=== PATIENT | female | born 1965 | race African-American/Black ===

== ENCOUNTER 2018-05-26 12:11 | Observation (INO) | payer OTHER ==
[2018-05-26] MEDS ORDERED: NA CHLORIDE 0.9% 1,000 ML ONE (12:40)
--- NOTE | 2018-05-26 12:58 | RAD REPORT ---
EXAM DESCRIPTION: CT - Head Brain Wo Cont - 05/26/2018 12:44 pm CLINICAL HISTORY: Dizziness;Headache COMPARISON: No comparisons TECHNIQUE: All CT scans are performed using dose optimization technique as appropriate and may inclu de automated exposure control or mA/KV adjustment according to patient size. FINDINGS: No intracranial hemorrhage, hydrocephalus or extra-axial fluid collection.No areas of brai n edema or evidence of midline shift. Moderate mucoperiosteal thickening affects the maxillary antra and ethmoid air cells. The calvarium i s intact. IMPRESSION: No acute intracranial abnormality. Moderate paranasal sinus thickening.
--- NOTE | 2018-05-26 12:58 | RAD REPORT ---
EXAM DESCRIPTION: RAD - Chest Single View - 05/26/2018 12:49 pm CLINICAL HISTORY: COUGH Chest pain. COMPARISON: No comparisons FINDINGS: Portable technique limits examination quality. The lungs are grossly clear. The heart is normal in size. No displaced fractures. IMPRESSION: No acute intrathoracic process suspected.
[2018-05-26] MEDS ORDERED: IPRATROPIUM BROM 0.5MG/2.5ML ONE (13:32)
[2018-05-26] MEDS ORDERED: LEVALBUTEROL 1.25 MG/3 ML NEB ONE (13:33)
[2018-05-26] MEDS ORDERED: METHYLPREDNISOLONE 125 MG INJ ONE (13:33)
[2018-05-26 13:46] LABS: Absolute Lymphocytes (CBC) 6.8 K/uL (0.7-4.9); Absolute Neutrophil 8.8 K/uL (1.8-8.0); Basophils % 0.6 % (0-1.3); Eosinophils % 0.8 % (0-4.4); Hematocrit 35.2 % (36.0-45.0); Lymphocytes % 40.4 % (15.3-44.8); MCH 29.1 pg (27.0-35.0); MCV 87.6 fL (80-100); MPV 8.6 fL (7.6-11.3); Monocytes % 6.2 % (3.3-12.3); RBC Red Blood Cell Count 4.01 M/uL (3.86-4.86)
[2018-05-26 13:48] LABS: Protime INR 1.08
[2018-05-26] MEDS ORDERED: CEFTRIAXONE/SWI 1gm 1 GM/10 ML SYR ONE (14:04)
[2018-05-26] MEDS ORDERED: AZITHROMYCIN 500 MG/250 ML BAG ONE (14:05)
[2018-05-26 14:09] LABS: ALT/SGPT 43 U/L (12-78); AST/SGOT 25 U/L (15-37); Alkaline Phosphatase 104 U/L (45-117); BUN Blood Urea Nitrogen 15 mg/dL (7-18); Bicarbonate 27 mmol/L (21-32); Bilirubin Direct 0.1 mg/dL (0-0.2); Bilirubin Total 0.3 mg/dL (0.2-1.0); Glucose Level 69 mg/dL (74-106); Lipase 197 U/L (73-393); Magnesium 2.5 mg/dL (1.8-2.4); NT PRO-BNP 85 pg/mL (<125); Potassium 3.2 mmol/L (3.5-5.1); Sodium Level 141 mmol/L (136-145); Troponin (Emerg Dept Use Only) < 0.02 ng/mL (0.0-0.045)
--- NOTE | 2018-05-26 14:12 | RAD REPORT ---
EXAM DESCRIPTION: MRI - Brain Wo Cont - 05/26/2018 1:54 pm CLINICAL HISTORY: Dizziness, numbness, left-sided headache and left arm numbness, visual changes COMPARISON: CT head same date TECHNIQUE: Sagittal T1-weighted images were obtained along with axial PD, heavily T2-weighted and T2 -FLAIR images. Axial DWI and ADC mapping sequences were also obtained along with coronal heavily T2-w eighted images. FINDINGS: No intracranial hemorrhage, mass or acute infarction. There is no edema or shift of midlin e structures. No extra-axial fluid collections. Wheat-matter/white matter junction is preserved. Signa l voids are seen as a normal finding in the major intracranial vessels. The ventricles are normal. No globe or orbital content abnormality. No sella or supra sella mass. Mastoid air cells are clear. There is significant mucosal thickening throughout the maxillary and eth moid sinuses. Small air-fluid levels in each maxillary sinus are identifiable. There is mucosal thick ening in the right-side frontal sinus as well. IMPRESSION: No intracranial abnormalities identifiable. Significant paranasal sinus disease including small air-fluid levels in each maxillary sinus.
[2018-05-26 14:42] LABS: Barbiturates NEGATIVE (NEGATIVE); Benzodiazepines NEGATIVE (NEGATIVE); Cocaine NEGATIVE (NEGATIVE); METHAMPHETAM NEGATIVE (NEGATIVE); Methadone NEGATIVE (NEGATIVE); Opiates NEGATIVE (NEGATIVE); Phencyclidine NEGATIVE (NEGATIVE); THC Cannibis NEGATIVE (NEGATIVE)
[2018-05-26] MEDS ORDERED: POTASSIUM 25 MEQ EFFERV TAB ONE (14:48)
--- NOTE | 2018-05-26 15:00 | EDPHYS ---
Physician Documentation [facility] Name: Stacey Oliveros Age: 53 yrs Sex: Female : 1965 Arrival Date: 05/26/2018 Time: 12:11 Bed 8 Private MD: ED Physician Joshua Mariano HPI: 05/26 13:13 This 53 yrs old Black Female presents to ER via EMS with complaints of Cough, Vision irwin Problem. 13:13 The patient or guardian reports airway noise, cough, difficulty breathing. Onset: The irwin symptoms/episode began/occurred 3 day(s) ago. Severity of symptoms: At their worst the symptoms were mild, in the emergency department the symptoms are unchanged. 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 - Social history:: Smoking status: Patient/guardian denies using tobacco, Patient/guardian denies using alcohol. - Ebola Screening: : Patient negative for fever greater than or equal to 101.5 degrees Fahrenheit, and additional compatible Ebola Virus Disease symptoms Patient denies exposure to infectious person Patient denies travel to an Ebola-affected area in the 21 days before illness onset. ROS: 13:14 Constitutional: Negative for fever, chills, and weight loss, Eyes: Negative for injury, irwin pain, redness, and discharge, ENT: Negative for injury, pain, and discharge, Neck: Negative for injury, pain, and swelling, Cardiovascular: Negative for chest pain, palpitations, and edema, Abdomen/GI: Negative for abdominal pain, nausea, vomiting, diarrhea, and constipation, Back: Negative for injury and pain, : Negative for injury, bleeding, discharge, and swelling, MS/Extremity: Negative for injury and deformity, Skin: Negative for injury, rash, and discoloration, Psych: Negative for depression, anxiety, suicide ideation, homicidal ideation, and hallucinations, Allergy/Immunology: Negative for hives, rash, and allergies, Endocrine: Negative for neck swelling, polydipsia, polyuria, polyphagia, and marked weight changes, Hematologic/Lymphatic: Negative for swollen nodes, abnormal bleeding, and unusual bruising. 13:14 Respiratory: Positive for cough, shortness of breath, wheezing, expiratory. 13:14 Neuro: Positive for numbness, of the nose, left cheek and left eye. Exam: 13:14 Constitutional: This is a well developed, well nourished patient who is awake, alert, irwin and in no acute distress. Head/Face: Normocephalic, atraumatic. Eyes: Pupils equal round and reactive to light, extra-ocular motions intact. Lids and lashes normal. Conjunctiva and sclera are non-icteric and not injected. Cornea within normal limits. Periorbital areas with no swelling, redness, or edema. ENT: Nares patent. No nasal discharge, no septal abnormalities noted. Tympanic membranes are normal and external auditory canals are clear. Oropharynx with no redness, swelling, or masses, exudates, or evidence of obstruction, uvula midline. Mucous membranes moist. Neck: Trachea midline, no thyromegaly or masses palpated, and no cervical lymphadenopathy. Supple, full range of motion without nuchal rigidity, or vertebral point tenderness. No Meningismus. Chest/axilla: Normal chest wall appearance and motion. Nontender with no deformity. No lesions are appreciated. Cardiovascular: Regular rate and rhythm with a normal S1 and S2. No gallops, murmurs, or rubs. Normal PMI, no JVD. No pulse deficits. Respiratory: Lungs have equal breath sounds bilaterally, clear to auscultation and percussion. No rales, rhonchi or wheezes noted. No increased work of breathing, no retractions or nasal flaring. Abdomen/GI: Soft, non-tender, with normal bowel sounds. No distension or tympany. No guarding or rebound. No evidence of tenderness throughout. Back: No spinal tenderness. No costovertebral tenderness. Full range of motion. Skin: Warm, dry with normal turgor. Normal color with no rashes, no lesions, and no evidence of cellulitis. MS/ Extremity: Pulses equal, no cyanosis. Neurovascular intact. Full, normal range of motion. Neuro: Awake and alert, GCS 15, oriented to person, place, time, and situation. Cranial nerves II-XII grossly intact. Motor strength 5/5 in all extremities. Sensory grossly intact. Cerebellar exam normal. Normal gait. Psych: Awake, alert, with orientation to person, place and time. Behavior, mood, and affect are within normal limits. 13:14 Neuro: Orientation: is normal, appropriate for stated age, no acute changes, Mentation: is normal, appropriate for stated age, no acute changes, Memory: is normal, appropriate for stated age, no acute changes, Cranial nerves: grossly normal, is grossly normal based on the patient's age, no acute changes, Cerebellar function: is grossly normal, is grossly normal based on the patient's age, no acute changes, normal finger to nose testing, heel to sena testing is normal, able to perform alternating rapid hand movements, Motor: is normal, is grossly normal based on the patient's age, no acute changes, moves all fours, strength is 5/5 in all extremities, Gait: not tested. Deep tendon reflexes are 2+ (normal) in the bilateral brachioradialis, bicep, tricep and patellar and Achilles tendons, seizure activity, is not displayed by the patient. Vital Signs: 12:16 BP 154 / 91; Pulse 69; Resp 18; Temp 97.2(TE); Pulse Ox 98% on R/A; Weight 87.54 kg; Height 5 ft. 7 in. (170.18 cm); Pain 8/10; 13:55 BP 148 / 89; Pulse 70; Resp 18; Pulse Ox 99% on R/A; hj 14:38 BP 136 / 75; Pulse 75; Resp 18; Pulse Ox 100% on R/A; 15:07 BP 136 / 96; Pulse 76; Resp 18; Pulse Ox 98% on R/A; 16:15 BP 132 / 94; Pulse 78; Resp 18; Pulse Ox 99% on R/A; 12:16 Body Mass Index 30.23 (87.54 kg, 170.18 cm) MDM: 12:14 Patient medically screened. [facility] 13:16 Data reviewed: vital signs, nurses notes, lab test result(s), EKG, radiologic studies, [facility] CT scan, MRI, plain films. 05/26 12:27 Order name: Basic Metabolic Panel; Complete Time: 14:18 [facility] 05/26 12:27 Order name: CBC with Diff; Complete Time: 14:18 [facility] 05/26 12:27 Order name: LFT's; Complete Time: 14:18 [facility] 05/26 12:27 Order name: Magnesium; Complete Time: 14:18 [facility] 05/26 12:27 Order name: NT PRO-BNP; Complete Time: 14:18 [facility] 05/26 12:27 Order name: PT-INR; Complete Time: 14:28 [facility] 05/26 12:27 Order name: Troponin (emerg Dept Use Only); Complete Time: 14:18 [facility] 05/26 12:27 Order name: Lipase; Complete Time: 14:18 [facility] 05/26 12:27 Order name: Blood Culture Adult (2) [facility] 05/26 12:27 Order name: Urine Culture [facility] 05/26 12:27 Order name: Procalcitonin; Complete Time: 14:28 [facility] 05/26 13:11 Order name: UDS; Complete Time: 14:56 [facility] 05/26 14:53 Order name: Urine Dipstick--Ancillary (enter results) 05/26 14:53 Order name: Urine --Ancillary (enter results) 05/26 12:27 Order name: XRAY Chest (1 view); Complete Time: 13:11 [facility] 05/26 12:27 Order name: EKG; Complete Time: 12:28 [facility] 05/26 12:27 Order name: Cardiac monitoring; Complete Time: 12:30 [facility] 05/26 12:27 Order name: CT Head Brain wo Cont; Complete Time: 13:11 [facility] 05/26 13:52 Order name: Brain Wo Cont; Complete Time: 14:18 EDID 05/26 12:27 Order name: EKG - Nurse/Tech; Complete Time: 13:47 [facility] 05/26 12:27 Order name: IV Saline Lock; Complete Time: 13:36 [facility] 05/26 12:27 Order name: Labs collected and sent; Complete Time: 13:36 [facility] 05/26 12:27 Order name: O2 Per Protocol; Complete Time: 12:30 [facility] 05/26 12:27 Order name: O2 Sat Monitoring; Complete Time: 12:30 [facility] 05/26 12:27 Order name: Urine Dipstick-Ancillary (obtain specimen); Complete Time: 14:14 [facility] 05/26 14:19 Order name: PO challenge: juice x1; Complete Time: 14:23 [facility] Administered Medications: 13:23 Drug: NS 0.9% 1000 ml Route: IV; Rate: 1 bolus; Site: left antecubital; hj 13:23 Drug: Xopenex 2.5 mg Route: Inhalation; hj 13:23 Drug: AtroVENT Aerosol 0.5 mg Route: Inhalation; hj 13:39 Drug: SOLU-Medrol 125 mg Route: IVP; Site: left antecubital; bp 13:56 Follow up: Response: No adverse reaction hj 14:21 Drug: Rocephin - (cefTRIAXone) 1 grams Route: IVPB; Infused Over: 30 mins; Site: left bp antecubital; 16:17 Follow up: IV Status: Completed infusion hj 14:22 Drug: Rocephin - (cefTRIAXone) 1 grams Route: IVPB; Infused Over: 30 mins; Site: left bp antecubital; 14:22 Drug: Zithromax 500 mg Route: IVPB; Infused Over: 1 hrs; Site: left antecubital; bp 16:17 Follow up: IV Status: Completed infusion hj 14:29 Drug: Potassium Effervescent Tablet 25 mEq Route: PO; hj 14:44 Follow up: Response: No adverse reaction hj 16:08 Not Given (pt enroute upstairs): morphine 4 mg IVP once hj 16:08 Not Given (pt enroute upstairs): Zofran 4 mg IVP once; over 2 minutes hj Disposition: 18 15:00 Hospitalization ordered by Marvin Torres for Observation. Preliminary diagnosis are Cough, Fever, unspecified, Pneumonia due to other specified bacteria, Headache, Acute sinusitis, Hypokalemia. - Bed requested for Telemetry/MedSurg (observation). - Status is Observation. hj - Condition is Fair. - Problem is new. - Symptoms have improved. UTI on Admission? No Signatures: Dispatcher [employer] EDID Liudmila Gerardo Corey, MD MD cha Joaquin, Henry RN RN Jonah Gauthier, RN RN bp Corrections: (The following items were deleted from the chart) 13:52 13:12 MR STROKE PROTOCOL+MRI.RAD.BRZ ordered. [facility] EDID 15:00 15:00 Hospitalization Ordered by Marvin Torres DO for Inpatient Admission. Preliminary irwin diagnosis is Cough; Fever, unspecified; Pneumonia due to other specified bacteria; Headache; Acute sinusitis. Bed requested for Telemetry/MedSurg (Inpatient). Status is Inpatient Admission. Condition is Fair. Problem is new. Symptoms have improved. UTI on Admission? No. irwin 15:00 15:00 05/26/2018 15:00 Hospitalization Ordered by Marvin Torres DO for Observation. irwin Preliminary diagnosis is Cough; Fever, unspecified; Pneumonia due to other specified bacteria; Headache; Acute sinusitis. Bed requested for Telemetry/MedSurg (observation). Status is Observation. Condition is Fair. Problem is new. Symptoms have improved. UTI on Admission? No. [facility] 15:40 15:00 05/26/2018 15:00 Hospitalization Ordered by Marvin Torres DO for Observation. bd Preliminary diagnosis is Cough; Fever, unspecified; Pneumonia due to other specified bacteria; Headache; Acute sinusitis; Hypokalemia. Bed requested for Telemetry/MedSurg (observation). Status is Observation. Condition is Fair. Problem is new. Symptoms have improved. UTI on Admission? No. [facility] 16:16 15:40 05/26/2018 15:00 Hospitalization Ordered by Marvin Torres DO for Observation. hj Preliminary diagnosis is Cough; Fever, unspecified; Pneumonia due to other specified bacteria; Headache; Acute sinusitis; Hypokalemia. Bed requested for Telemetry/MedSurg (observation). Status is Observation. Condition is Fair. Problem is new. Symptoms have improved. UTI on Admission? No. bd
--- NOTE | 2018-05-26 15:00 | ER ---
Nurse's Notes [facility] Name: Stacey Oliveros Age: 53 yrs Sex: Female : 1965 Arrival Date: 05/26/2018 Time: 12:11 Bed 8 Private MD: Diagnosis: Cough;Fever, unspecified;Pneumonia due to other specified bacteria;Headache;Acute sinusitis;Hypokalemia Presentation: 05/26 12:12 Presenting complaint: EMS states: coming from [facility], pt states, almost done hj with antibiotics and steroid Rx when pt complained of "tunnel vision" , denies blurry vision; reports one sided L side of head pain, L arm numbness; BP- 160/90;. Transition of care: patient was not received from another setting of care. Onset of symptoms was May 26, 2018. Risk Assessment: Do you want to hurt yourself or someone else? Patient reports no desire to harm self or others. Initial Sepsis Screen: Does the patient meet any 2 criteria? No. Patient's initial sepsis screen is negative. Does the patient have a suspected source of infection? No. Patient's initial sepsis screen is negative. Care prior to arrival: None. 12:12 Method Of Arrival: EMS: [facility] 12:12 Acuity: RENEE 3 hj Triage Assessment: 12:15 General: Appears in no apparent distress. uncomfortable, Behavior is calm, cooperative, hj appropriate for age. Pain: Complains of pain in L side of face. 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 - Social history:: Smoking status: Patient/guardian denies using tobacco, Patient/guardian denies using alcohol. - Ebola Screening: : Patient negative for fever greater than or equal to 101.5 degrees Fahrenheit, and additional compatible Ebola Virus Disease symptoms Patient denies exposure to infectious person Patient denies travel to an Ebola-affected area in the 21 days before illness onset. Screenin:16 Abuse screen: Denies threats or abuse. Denies injuries from another. Nutritional hj screening: No deficits noted. Tuberculosis screening: No symptoms or risk factors identified. Fall Risk None identified. Assessment: 12:58 General: Appears in no apparent distress. uncomfortable, Behavior is calm, cooperative, hj appropriate for age. Pain: Complains of pain in face and left eye and left cheek. Neuro: Level of Consciousness is awake, alert, obeys commands, Oriented to person, place, time, situation, Appropriate for age. Cardiovascular: Capillary refill < 3 seconds Patient's skin is warm and dry. Respiratory: Airway is patent Respiratory effort is even, unlabored, Respiratory pattern is regular, symmetrical. GI: No signs and/or symptoms were reported involving the gastrointestinal system. : No signs and/or symptoms were reported regarding the genitourinary system. EENT: No signs and/or symptoms were reported regarding the EENT system. Derm: No signs and/or symptoms reported regarding the dermatologic system. Musculoskeletal: No signs and/or symptoms reported regarding the musculoskeletal system. 13:45 Reassessment: wheeled to CT:. hj 14:15 Reassessment: PT RETURNED FROM CT. ALL CURRENT STUDIES COMPLETED, RESULTS PENDING. bp 14:38 Reassessment: Patient and/or family updated on plan of care and expected duration. Pain hj level reassessed. Patient is alert, oriented x 3, equal unlabored respirations, skin warm/dry/pink. 15:06 Reassessment: Patient and/or family updated on plan of care and expected duration. Pain hj level reassessed. Patient is alert, oriented x 3, equal unlabored respirations, skin warm/dry/pink. awaiting room placement;. 16:15 Reassessment: to room 228;. hj Vital Signs: 12:16 BP 154 / 91; Pulse 69; Resp 18; Temp 97.2(TE); Pulse Ox 98% on R/A; Weight 87.54 kg; hj Height 5 ft. 7 in. (170.18 cm); Pain 8/10; 13:55 BP 148 / 89; Pulse 70; Resp 18; Pulse Ox 99% on R/A; hj 14:38 BP 136 / 75; Pulse 75; Resp 18; Pulse Ox 100% on R/A; hj 15:07 BP 136 / 96; Pulse 76; Resp 18; Pulse Ox 98% on R/A; hj 16:15 BP 132 / 94; Pulse 78; Resp 18; Pulse Ox 99% on R/A; hj 12:16 Body Mass Index 30.23 (87.54 kg, 170.18 cm) ED Course: 12:11 Patient arrived in ED. hj 12:12 Girish Jackson, RN is Primary Nurse. hj 12:13 Joshua Mariano MD is Attending Physician. irwin 12:14 Triage completed. hj 12:16 Arm band placed on right wrist. hj 12:16 Patient has correct armband on for positive identification. Bed in low position. Call light in reach. Side rails up X2. 12:43 CT Head Brain wo Cont In Process Unspecified. EDMS 12:43 CT completed. Patient tolerated procedure well. Patient moved to CT via stretcher. [email or web address] Patient moved to radiology. 12:48 X-ray completed. Patient tolerated procedure well. Patient moved back from radiology. sw 12:49 XRAY Chest (1 view) In Process Unspecified. EDMS 12:49 EKG done, by power equipment technology instructor. reviewed by Joshua Mariano MD. sm3 13:38 Inserted saline lock: 22 gauge in left antecubital area, using aseptic technique. Blood bp collected. 13:52 Patient moved to MRI via wheelchair. ka 13:54 Brain Wo Cont In Process Unspecified. EDMS 14:15 Patient moved back from MRI. 14:57 Marvin Torres DO is Hospitalizing Provider. irwin 16:14 No provider procedures requiring assistance completed. Patient admitted, IV remains in hj place. intact. Administered Medications: 13:23 Drug: NS 0.9% 1000 ml Route: IV; Rate: 1 bolus; Site: left antecubital; hj 13:23 Drug: Xopenex 2.5 mg Route: Inhalation; hj 13:23 Drug: AtroVENT Aerosol 0.5 mg Route: Inhalation; hj 13:39 Drug: SOLU-Medrol 125 mg Route: IVP; Site: left antecubital; bp 13:56 Follow up: Response: No adverse reaction hj 14:21 Drug: Rocephin - (cefTRIAXone) 1 grams Route: IVPB; Infused Over: 30 mins; Site: left bp antecubital; 16:17 Follow up: IV Status: Completed infusion hj 14:22 Drug: Rocephin - (cefTRIAXone) 1 grams Route: IVPB; Infused Over: 30 mins; Site: left bp antecubital; 14:22 Drug: Zithromax 500 mg Route: IVPB; Infused Over: 1 hrs; Site: left antecubital; bp 16:17 Follow up: IV Status: Completed infusion 14:29 Drug: Potassium Effervescent Tablet 25 mEq Route: PO; 14:44 Follow up: Response: No adverse reaction 16:08 Not Given (pt enroute upstairs): morphine 4 mg IVP once hj 16:08 Not Given (pt enroute upstairs): Zofran 4 mg IVP once; over 2 minutes Outcome: 15:00 Decision to Hospitalize by Provider. irwin 16:14 Admitted to Med/surg accompanied by nurse, room 228, with chart, Report called to stephon Mooney RN 16:14 Condition: stable 16:14 Instructed on the need for admit, Demonstrated understanding of instructions. 16:16 Patient left the ED. stephon Signatures: Dispatcher [employer] EDMS Joshua Mariano MD MD cha Compean, Lorena lc Warren, Shannon sw Joaquin, Henry, RN RN Sandi Nolen Brian, JOHN RN Debbie Morales3 Triston, Sara [id number] Corrections: (The following items were deleted from the chart) 12:18 12:16 BP 154 / 91; Pulse 69bpm; Resp 18bpm; Pulse Ox 98% RA; Temp 98.1F Temporal; 87.54 hj kg; Height 5 ft. 7 in.; BMI: 30.2; Pain 6/10; hj
[2018-05-26] MEDS ORDERED: BENZONATATE 100 MG CAP PO PRN (15:12)
[2018-05-26] MEDS ORDERED: ACETAMINOPHEN 500 MG TAB PO PRN (15:12)
[2018-05-26] MEDS ORDERED: ALBUTEROL 2.5 MG/3 ML NEB SOL NEB PRN (15:12)
[2018-05-26] MEDS ORDERED: ONDANSETRON 4 MG/2 ML VIAL IV PRN (15:12)
[2018-05-26] MEDS ORDERED: IPRATROPIUM BROM 0.5MG/2.5ML NEB PRN (15:12)
--- NOTE | 2018-05-26 15:23 | P.HP ---
Certification for Inpatient Patient admitted to: Observation With expected LOS: <2 Midnights Patient will require the following post-hospital care: None Practitioner: I am a practitioner with admitting privileges, knowledge of patient current condition, hospital course, and medical plan of care. Services: Services provided to patient in accordance with Admission requirements found in Title 42 Section 412.3 of the Code of Federal Regulations Patient History Date of Service: 05/26/18 Primary Care Provider: Chepe Whatley Reason for admission: Cough, congestion, shortness of breath History of Present Illness: 53-year-old female presented to the emergency room with cough, congestion and shortness of breath. Patient was seen earlier in the week for cough, congestion and shortness of breath. She was diagnosed with bronchitis. She was sent home with Zithromax and a steroid pack. Her condition did not improve. She persisted to have increasing cough with congestion. Some sinus tenderness noted. She denied any fever, chest pain. She reported some shortness of breath and chills. She also reported some numbness to the face with tenderness. Patient came to the ER for evaluation. In the ER blood pressure stable. CT of the head showed no acute changes. MRI brain showed no acute changes except for air-fluid levels in the maxillaries sinuses. Chest x-ray unremarkable. White count 16.8. Hemoglobin 11.7. Sodium 141, potassium 3.2. Creatinine 1.0, GFR 70. Troponin less than 0.02. Pro calcitonin unremarkable. Urine drug screen negative. Patient was admitted for observation. When I saw the patient ER, she appeared stable. Pain to the sinus areas improved. She had increasing cough and congestion. She does not have a history of COPD. She reports a history of tobacco abuse and alcohol use. Allergies No Known Drug Allergies Allergy (Unverified 11/17/14 03:19) Unknown Home medications list reviewed: Yes - Past Medical/Surgical History Diabetic: No -: Chronic sinusitis -: Tobacco abuse Past Surgical History: Patient denies surgical history Psychosocial/ Personal History: The patient is engaged. She has 2 children. 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 - Family History Father -: Heart disease Mother -: Diabetes - Social History Smoking Status: Light Tobacco smoker (1-9 cigarettes/day) Counseled patient to stop smoking for: less than 10 minutes Alcohol use: Yes CD- Drugs: No Caffeine use: Yes Place of Residence: Home Review of Systems General: Weakness, Unremarkable Eyes: Unremarkable ENT: Nose Congestion, As per HPI Respiratory: Cough, Shortness of Breath, As per HPI Cardiovascular: Unremarkable Gastrointestinal: Unremarkable Genitourinary: Unremarkable Musculoskeletal: Unremarkable Integumentary: Unremarkable Neurological: Unremarkable Lymphatics: Unremarkable Physical Examination - Physical Exam General: Alert, In no apparent distress, Oriented x3, Cooperative HEENT: Atraumatic, Other (Some sinus tenderness noted.) Neck: Supple, No Thyromegaly Respiratory: Expiratory wheezes (Bilateral) Cardiovascular: Normal pulses, Regular rate/rhythm Gastrointestinal: Normal bowel sounds, Soft and benign, Non-distended, No tenderness, No masses, No rebound, No guarding Musculoskeletal: No contractures, No erythema, No tenderness, No warmth Integumentary: No tenderness/swelling, No erythema, No warmth, No cyanosis Neurological: Normal speech, Normal strength at 5/5 x4 extr, Normal tone, Normal affect - Studies Laboratory Data (last 24 hrs) 05/26/18 13:30: PT 12.8 H, INR 1.08 05/26/18 13:30: WBC 16.8 H, Hgb 11.7 L, Hct 35.2 L, Plt Count 351 05/26/18 13:30: Sodium 141, Potassium 3.2 L, BUN 15, Creatinine 1.00, Glucose 69 L, Magnesium 2.5 H, Total Bilirubin 0.3, AST 25, ALT 43, Alkaline Phosphatase 104, Lipase 197 Assessment and Plan - Plan Impression: Cough, congestion and shortness of breath secondary to COPD exacerbation with new diagnosis of COPD Suspect acute maxillary bacterial sinusitis Tobacco abuse GERD Plan: Cough, congestion and shortness of breath secondary to COPD exacerbation with new diagnosis of COPD: Patient we be admitted and observed. Will continue with COPD treatment. Steroids will be started. Will continue with COPD medication. Will provide medication for cough, congestion. Will reassess tomorrow. Will maintain sats above 90%. 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 Will recheck chest x-ray again tomorrow. Anticipate possible discharge tomorrow if improved. Suspect acute maxillary bacterial sinusitis: Will provide medication for sinusitis. Will start Levaquin. Will start Flonase. Tobacco abuse: Will provide nicotine patch. Will continue with tobacco cessation. GERD: GERD suspected. Will start PPI. Discharge Plan: Home Plan to discharge in: 24 Hours - Advance Directives Does patient have a Living Will: No Does patient have a Durable POA for Healthcare: No - Code Status/Comfort Care Code Status Assessed: Yes (Patient is full code.) Time Spent Managing Pts Care (In Minutes): 55
[2018-05-26] MEDS: NICOTINE 21 MG/PAT TD SCH (16:32)
[2018-05-26] MEDS: NA CHLORIDE 0.9% 1,000 ML IV SCH (16:32)
[2018-05-26] MEDS: ENOXAPARIN 40 MG/0.4 ML SQ SCH (16:32)
[2018-05-26] MEDS: levoFLOXacin 750 MG TAB PO SCH (16:32)
[2018-05-26] MEDS: TRAMADOL HCL 50 MG TAB PO PRN (16:42)
[2018-05-26 17:35] LABS: Urine Appearance CLEAR; Urine Bilirubin NEGATIVE (NEG); Urine Blood NEGATIVE (NEG); Urine Color YELLOW; Urine Glucose NEGATIVE (NEG); Urine Protein NEGATIVE (NEG); Urine Urobilinogen 0.2 mg/dL (0.2-1.0); Urine pH 7.5 (5.0-7.0)
[2018-05-26 17:41] LABS: Urine Microscopic Reflex NO UMIC
--- NOTE | 2018-05-26 17:42 | EKG ---
Test Date: 2018-05-26 Test Time: 12:38:06 Fingerprint Clerk: JOSIANE MEASUREMENT RESULTS: Intervals: Rate: 60 CO: 150 QRSD: 92 QT: 434 QTc: 434 [place]: P: 68 CO: 150 QRS: 71 T: 39 INTERPRETIVE STATEMENTS: Normal sinus rhythm with sinus arrhythmia Normal ECG No previous ECG available for comparison Electronically Signed On 05-26-18 17:41:45 CDT by Himanshu Grant
[2018-05-26] MEDS ORDERED: INFLUENZA VACCINE (for 3y+) 0.5 ML DOSE IMVAC ONE (18:00)
[2018-05-26 18:05] LABS: Urine Blood TRACE (NEG); Urine Glucose NEGATIVE (NEG); Urine Protein TRACE (NEG); Urine Specific Gravity 1.025 (1.005-1.030)
[2018-05-26] MEDS: GUAIFENESIN 600 MG SA TAB PO SCH (21:35)
[2018-05-26] MEDS: predniSONE 20 MG TAB PO SCH (21:36)
[2018-05-26] MEDS: FLUTICASONE 50MCG NASAL SPRAY NAS SCH (21:36)
[2018-05-27] MEDS: NA CHLORIDE 0.9% 1,000 ML IV SCH (00:17)
[2018-05-27] MEDS: TRAMADOL HCL 50 MG TAB PO PRN ×2 (04:36→10:54)
[2018-05-27 05:28] LABS: Absolute Lymphocytes (CBC) 2.3 K/uL (0.7-4.9); Absolute Monocytes 0.6 K/uL (0.1-1.3); Absolute Neutrophil 9.8 K/uL (1.8-8.0); Basophils % 0.3 % (0-1.3); Hematocrit 33.4 % (36.0-45.0); MCH 29.2 pg (27.0-35.0); MCV 89.4 fL (80-100); MPV 9.4 fL (7.6-11.3); Monocytes % 4.9 % (3.3-12.3); RBC Red Blood Cell Count 3.73 M/uL (3.86-4.86)
[2018-05-27 05:51] LABS: BUN Blood Urea Nitrogen 16 mg/dL (7-18); Bicarbonate 23 mmol/L (21-32); Glucose Level 106 mg/dL (74-106); Magnesium 2.5 mg/dL (1.8-2.4); Potassium 4.3 mmol/L (3.5-5.1); Sodium Level 141 mmol/L (136-145)
--- NOTE | 2018-05-27 07:12 | RAD REPORT ---
EXAM DESCRIPTION: RAD - Chest Pa And Lat (2 Views) - 05/27/2018 7:07 am CLINICAL HISTORY: COPD, shortness of breath COMPARISON: May 26 TECHNIQUE: PA and lateral views of the chest were obtained. FINDINGS: The lungs are clear of a consolidation, mass or failure finding. Minimal stranding at the left base is favored to be atelectasis rather than pneumonia. This can be monitored as warranted. H eart size is normal and central vasculature is within normal limits. No pleural effusion or pneumoth orax seen. No acute bony finding noted. No aortic abnormality. IMPRESSION: No consolidation has developed. Trace amount of left base stranding is favored to be atelectasis but can be monitored for early infil trate.
[2018-05-27] MEDS ORDERED: PANTOPRAZOLE 40MG TABLET PO SCH (07:30)
[2018-05-27] MEDS: levoFLOXacin 750 MG TAB PO SCH (08:44)
[2018-05-27] MEDS: GUAIFENESIN 600 MG SA TAB PO SCH (08:44)
[2018-05-27] MEDS: FLUTICASONE 50MCG NASAL SPRAY NAS SCH (08:44)
[2018-05-27] MEDS: ENOXAPARIN 40 MG/0.4 ML SQ SCH (08:44)
[2018-05-27] MEDS: predniSONE 20 MG TAB PO SCH ×2 (08:44→13:35)
[2018-05-27] MEDS: NICOTINE 21 MG/PAT TD SCH (08:45)
--- NOTE | 2018-05-27 09:52 | P.DS ---
Admission Date: 05/26/18 Discharge Date: 05/27/18 Primary Care Provider: Chepe Whatley Disposition: ROUTINE DISCHARGE Discharge Condition: GOOD Reason for Admission: Cough, congestion, shortness of breath Procedures: MRI brain: COMPARISON: CT head same date TECHNIQUE: Sagittal T1-weighted images were obtained along with axial PD, heavily T2-weighted and T2-FLAIR images. Axial DWI and ADC mapping sequences were also obtained along with coronal heavily T2-weighted images. FINDINGS: No intracranial hemorrhage, mass or acute infarction. There is no edema or shift of midline structures. No extra-axial fluid collections. Wheat- matter/white matter junction is preserved. Signal voids are seen as a normal finding in the major intracranial vessels. The ventricles are normal. No globe or orbital content abnormality. No sella or supra sella mass. Mastoid air cells are clear. There is significant mucosal thickening throughout the maxillary and ethmoid sinuses. Small air-fluid levels in each maxillary sinus are identifiable. There is mucosal thickening in the right-side frontal sinus as well. IMPRESSION: No intracranial abnormalities identifiable. Significant paranasal sinus disease including small air-fluid levels in each maxillary sinus. Chest x-ray: COMPARISON: May 26 TECHNIQUE: PA and lateral views of the chest were obtained. FINDINGS: The lungs are clear of a consolidation, mass or failure finding. Minimal stranding at the left base is favored to be atelectasis rather than pneumonia. This can be monitored as warranted. Heart size is normal and central vasculature is within normal limits. No pleural effusion or pneumothorax seen. No acute bony finding noted. No aortic abnormality. IMPRESSION: No consolidation has developed. Trace amount of left base stranding is favored to be atelectasis but can be monitored for early infiltrate. Impression: Cough, congestion and shortness of breath secondary to COPD exacerbation with new diagnosis of COPD and suspect early left lower lobe pneumonia with atelectasis Acute maxillary bacterial sinusitis Tobacco abuse GERD Obesity, BMI 30.2 Mild anemia Brief History of Present Illness: 53-year-old female presented to the emergency room with cough, congestion and shortness of breath. Patient was seen earlier in the week for cough, congestion and shortness of breath. She was diagnosed with bronchitis. She was sent home with Zithromax and a steroid pack. Her condition did not improve. She persisted to have increasing cough with congestion. Some sinus tenderness noted. She denied any fever, chest pain. She reported some shortness of breath and chills. She also reported some numbness to the face with tenderness. Patient came to the ER for evaluation. In the ER blood pressure stable. CT of the head showed no acute changes. MRI brain showed no acute changes except for air-fluid levels in the maxillaries sinuses. Chest x-ray unremarkable. White count 16.8. Hemoglobin 11.7. Sodium 141, potassium 3.2. Creatinine 1.0, GFR 70. Troponin less than 0.02. Pro calcitonin unremarkable. Urine drug screen negative. Patient was admitted for observation. When I saw the patient ER, she appeared stable. Pain to the sinus areas improved. She had increasing cough and congestion. She does not have a history of COPD. She reports a history of tobacco abuse and alcohol use. Hospital Course: Patient presented with cough, congestion and shortness of breath. Patient appears to have COPD exacerbation. This is a new diagnosis for her. Patient with history of tobacco abuse. X-ray revealed early left lower lobe pneumonia with atelectasis. Patient was given treatment in the hospital. Her condition improved. At discharge she did not require any oxygen. Patient responding to therapy. At discharge she will continue with prednisone 20 mg 1 pill twice daily for 5 days then 1 pill once daily for 5 days. For her COPD she will start Advair 250 mg 1 puff twice daily and Pro air 2 puffs 3 times a day as needed for shortness of breath. COPD education will be provided. Recommendation is for the patient to follow up with pulmonology as an outpatient to further evaluate and monitor. For her pneumonia and atelectasis she will continue with Levaquin 750 mg 1 pill daily for 6 days. Tessalon Perles 100 mg 1 pill 3 times a day as needed for cough and Mucinex 1200 mg 1 pill twice daily for congestion will be provided. Patient may continue with incentive spirometer. Recommendation is to recheck chest x-ray in 2-4 weeks to monitor resolution. MRI revealed acute maxillary bacterial sinusitis. Patient will continue with Levaquin 750 mg once daily for 6 days. Patient will also continue with Flonase 1 spray per nostril twice daily. Recommendation is for the patient to follow up with ENT as an outpatient to further monitor. Patient with tobacco abuse. Patient desires to quit. Will provide nicotine patch 1 patch applied to skin daily at discharge. This will need to be weaned down by her PCP. Patient likely has GERD. Patient may take Prilosec 20 mg one pill daily. GERD education and lifestyle modification education will be provided. Patient with obesity, BMI 30.2. Patient will continue with diet and lifestyle modification education. Mild anemia was identified. Recommendation to recheck lab-CBC in 2-4 weeks to monitor her progress. Patient may require further workup if this remains low. Recommend colonoscopy in the future as the patient is above 50 years of age. Vital Signs/Physical Exam: Temp Pulse Resp BP Pulse Ox 97.4 F 57 16 142/75 H 96 05/27/18 08:00 05/27/18 08:00 05/27/18 08:00 05/27/18 08:00 05/27/18 08:00 General: Alert, In no apparent distress, Oriented x3, Oriented x1 HEENT: Atraumatic, Mucous membr. moist/pink, Other (mild sinus tenderness) Neck: Supple, No Thyromegaly Respiratory: Expiratory wheezes (mild but better air movement) Cardiovascular: Normal pulses, Regular rate/rhythm Gastrointestinal: Normal bowel sounds, Soft and benign, Non-distended, No tenderness, No masses, No rebound, No guarding Musculoskeletal: No contractures, No erythema, No tenderness, No warmth Integumentary: No tenderness/swelling, No erythema, No warmth, No cyanosis Neurological: Normal speech, Normal strength at 5/5 x4 extr, Normal tone, Normal affect Laboratory Data at Discharge: WBC 12.8 K/uL (4.3-10.9) H D 05/27/18 04:22 Hgb 10.9 g/dL (12.0-15.0) L 05/27/18 04:22 Hct 33.4 % (36.0-45.0) L 05/27/18 04:22 Plt Count 277 K/uL (152-406) D 05/27/18 04:22 PT 12.8 SECONDS (9.5-12.5) H 05/26/18 13:30 INR 1.08 05/26/18 13:30 Sodium 141 mmol/L (136-145) 05/27/18 04:22 Potassium 4.3 mmol/L (3.5-5.1) 05/27/18 04:22 BUN 16 mg/dL (7-18) 05/27/18 04:22 Creatinine 0.80 mg/dL (0.55-1.3) 05/27/18 04:22 Glucose 106 mg/dL (74-106) 05/27/18 04:22 Magnesium 2.5 mg/dL (1.8-2.4) H 05/27/18 04:22 Total Bilirubin 0.3 mg/dL (0.2-1.0) 05/26/18 13:30 AST 25 U/L (15-37) 05/26/18 13:30 ALT 43 U/L (12-78) 05/26/18 13:30 Alkaline Phosphatase 104 U/L (45-117) 05/26/18 13:30 Lipase 197 U/L (73-393) 05/26/18 13:30 Home Medications: Albuterol Sulfate [Proair Hfa] 8.5 gm IH TID PRN #1 hfa.aer.ad 05/27/18 Benzonatate [Tessalon Perle*] 100 mg PO TID PRN #30 cap 05/27/18 Fluticasone [Flonase 50MCG Nasal [place]*] 1 sprays ERICH BID #1 btl 05/27/18 Fluticasone/Salmeterol [Advair 250-50 Diskus] 1 each IH BID #1 blst.w.dev Nicotine [Nicoderm*] 21 mg TD DAILY #30 patch.td24 05/27/18 Omeprazole Magnesium [Prilosec Otc] 20 mg PO DAILY #30 tablet. 05/27/18 levoFLOXacin [Levaquin*] 750 mg PO DAILY #6 tab 05/27/18 predniSONE [Prednisone*] 20 mg PO SEECOM #15 tab 05/27/18 New Medications: Albuterol Sulfate [Proair Hfa] 8.5 gm IH TID PRN #1 hfa.aer.ad PRN Reason: Shortness Of Breath Benzonatate [Tessalon Perle*] 100 mg PO TID PRN #30 cap PRN Reason: Cough Fluticasone [Flonase 50MCG Nasal [place]*] 1 sprays ERICH BID #1 btl Fluticasone/Salmeterol [Advair 250-50 Diskus] 1 each IH BID #1 blst.w.dev levoFLOXacin [Levaquin*] 750 mg PO DAILY #6 tab Nicotine [Nicoderm*] 21 mg TD DAILY #30 patch.td24 Omeprazole Magnesium [Prilosec Otc] 20 mg PO DAILY #30 tablet. predniSONE [Prednisone*] 20 mg PO SEECOM #15 tab Patient Discharge Instructions: 1. Patient will need a follow up with her PCP in 1 week to follow up this hospitalization. 2. Patient presented with cough, congestion and shortness of breath. Patient appears to have COPD exacerbation. This is a new diagnosis for her. Patient with history of tobacco abuse. X- ray revealed early left lower lobe pneumonia with atelectasis. Patient was given treatment in the hospital. Her condition improved. At discharge she did not require any oxygen. Patient responding to therapy. At discharge she will continue with prednisone 20 mg 1 pill twice daily for 5 days then 1 pill once daily for 5 days. For her COPD she will start Advair 250 mg 1 puff twice daily and Pro air 2 puffs 3 times a day as needed for shortness of breath. COPD education will be provided. Recommendation is for the patient to follow up with pulmonology as an outpatient to further evaluate and monitor. For her pneumonia and atelectasis she will continue with Levaquin 750 mg 1 pill daily for 6 days. Tessalon Perles 100 mg 1 pill 3 times a day as needed for cough and Mucinex 1200 mg 1 pill twice daily for congestion will be provided. Patient may continue with incentive spirometer. Recommendation is to recheck chest x-ray in 2-4 weeks to monitor resolution. 3. MRI revealed acute maxillary bacterial sinusitis. Patient will continue with Levaquin 750 mg once daily for 6 days. Patient will also continue with Flonase 1 spray per nostril twice daily. Recommendation is for the patient to follow up with ENT as an outpatient to further monitor. 4. Patient with tobacco abuse. Patient desires to quit. Will provide nicotine patch 1 patch applied to skin daily at discharge. This will need to be weaned down by her PCP. 5. Patient likely has GERD. Patient may take Prilosec 20 mg one pill daily. GERD education and lifestyle modification education will be provided. 6. Patient with obesity, BMI 30.2. Patient will continue with diet and lifestyle modification education. 7. Mild anemia was identified. Recommendation to recheck lab-CBC in 2-4 weeks to monitor her progress. Patient may require further workup if this remains low. Recommend colonoscopy in the future as the patient is above 50 years of age. Diet: AHA Activity: Ad ana Time spent managing pt's care (in minutes): 55
== END 2018-05-27 13:30 | disposition home or self-care (01) ==
LOC: ER 12:11 → ERHOLD 15:03 → 2ND 16:00
PROVIDERS: ADMIT Family Medicine; ATTEND Family Medicine
DX: J44.1 Chronic obstructive pulmonary disease with (acute) exacerbation (principal); J44.0 Chronic obstructive pulmonary disease with (acute) lower respiratory infection; J18.9 Pneumonia, unspecified organism; J01.00 Acute maxillary sinusitis, unspecified; B96.89 Other specified bacterial agents as the cause of diseases classified elsewhere; F17.210 Nicotine dependence, cigarettes, uncomplicated; Z23 Encounter for immunization; E66.9 Obesity, unspecified; Z68.30 Body mass index [BMI] 30.0-30.9, adult; D64.9 Anemia, unspecified; J98.11 Atelectasis
CPT/HCPCS: 36415; 70450; 70551; 71045; 71046; 80048; 80076; 80307; 81003; 81025; 83690; 83735; 83880; 84145; 84484; 85025; 85610; 87040; 87070; 87081; 87086; 87088; 87804; 93005; 96365; 96368; 96375; 99285; G0008; G0378; J0456; J0696; J1650; J2930; J7030; J7512; Q2035

== ENCOUNTER 2018-10-10 08:11 | Emergency (ER) | payer OTHER ==
--- NOTE | 2018-10-10 08:45 | ER ---
Nurse's Notes [facility] Name: Stacey Oliveros Age: 53 yrs Sex: Female : 1965 Arrival Date: 10/10/2018 Time: 08:13 Bed 14 Private MD: Diagnosis: Rash and other nonspecific skin eruption Presentation: 10/10 08:24 Presenting complaint: Patient states: Rash to L arm, abdomen and L leg that began ss approximately 3-5 days ago. PT reports the rash is itchy and hurts when you scratch. Transition of care: patient was not received from another setting of care. Onset of symptoms was October 05, 2018. Risk Assessment: Do you want to hurt yourself or someone else? Patient reports no desire to harm self or others. Initial Sepsis Screen: Does the patient meet any 2 criteria? No. Patient's initial sepsis screen is negative. Does the patient have a suspected source of infection? No. Patient's initial sepsis screen is negative. Care prior to arrival: None. 08:24 Method Of Arrival: Ambulatory ss 08:24 Acuity: RENEE 3 ss Historical: - Allergies: 08:27 No Known Allergies; ss - Immunization history:: Adult Immunizations up to date. - Social history:: Smoking status: Patient uses tobacco products, denies chronic smoking, but will smoke occasionally. - Ebola Screening: : Patient denies exposure to infectious person Patient denies travel to an Ebola-affected area in the 21 days before illness onset. Screenin:44 Abuse screen: Denies threats or abuse. Nutritional screening: No deficits noted. em Tuberculosis screening: No symptoms or risk factors identified. Fall Risk None identified. Assessment: 08:44 General: Appears in no apparent distress. uncomfortable, well groomed, well developed, em well nourished, Behavior is calm, cooperative, Denies fever. Pain: Complains of pain in left leg and left arm and pelvis and left femoral area and right femoral area Pain currently is 10 out of 10 on a pain scale. Quality of pain is described as burning, itchy. Neuro: Level of Consciousness is awake, alert, obeys commands, Oriented to person, place, time, situation. Cardiovascular: Capillary refill < 3 seconds Patient's skin is warm and dry. Respiratory: Airway is patent Respiratory effort is even, unlabored, Respiratory pattern is regular, symmetrical, Breath sounds are clear bilaterally. GI: Abdomen is flat. Derm: Skin is intact, is healthy with good turgor, Skin is pink, warm \T\ dry. Rash noted that is itchy, red, raised, on abdomen, pelvis, right arm and left arm. 08:56 Reassessment: Patient appears in no apparent distress at this time. No changes from sv previously documented assessment. Patient and/or family updated on plan of care and expected duration. Pain level reassessed. Patient is alert, oriented x 3, equal unlabored respirations, skin warm/dry/pink. Vital Signs: 08:27 BP 135 / 91; Pulse 60; Resp 18; Temp 97.0; Pulse Ox 99% ; Weight 81.19 kg; Height 5 ft. ms 9 in. (175.26 cm); Pain 10/10; 08:27 Body Mass Index 26.43 (81.19 kg, 175.26 cm) ms ED Course: 08:13 Patient arrived in ED. as 08:26 Triage completed. ss 08:27 Arm band placed on right wrist. ss 08:28 Adan Orellana MD is Attending Physician. kdr 08:40 Fred Salmeron LVN is Primary Nurse. em 08:44 Patient has correct armband on for positive identification. Placed in gown. Bed in low em position. Call light in reach. Pulse ox on. NIBP on. 08:56 No provider procedures requiring assistance completed. Patient did not have IV access sv during this emergency room visit. Administered Medications: 08:41 Not Given (Other Intervention Used): SOLU-Medrol 125 mg IVP once em 08:48 Drug: Benadryl 50 mg Route: PO; em 09:08 Follow up: Response: No adverse reaction em 08:48 Drug: Pepcid 20 mg Route: PO; em 09:08 Follow up: Response: No adverse reaction em 08:49 Drug: SOLU-Medrol 125 mg Route: IM; Site: left gluteus; em 09:08 Follow up: Response: No adverse reaction em Outcome: 08:44 Discharge ordered by . kdr 08:56 Discharged to home ambulatory. sv 08:56 Condition: stable 08:56 Discharge instructions given to patient, Instructed on discharge instructions, follow up and referral plans. medication usage, Demonstrated understanding of instructions, follow-up care, medications, Prescriptions given X 3. 09:09 Patient left the ED. em Signatures: Renee Kiran, RN RN Adan Cota MD MD kdr Munoz, Edgar, COMMERCIAL LOAN ANALYST COMMERCIAL LOAN ANALYST Kallie Dangelo Maria ms Smirch, Shelby, RN RN ss
--- NOTE | 2018-10-10 08:45 | EDPHYS ---
Physician Documentation [facility] Name: Stacey Oliveros Age: 53 yrs Sex: Female : 1965 Arrival Date: 10/10/2018 Time: 08:13 Bed 14 Private MD: ED Physician Adan Orellana HPI: 10/10 08:37 This 53 yrs old Black Female presents to ER via Ambulatory with complaints of Rash. kdr 08:37 The patient's rash thought to be caused by an unknown cause. The rash is located on the kdr body diffusely. The rash can be described as papular, raised, Appears to be somewhat like an ant bite with raised hard papules that itch and are painful when itched too much. No evidence of secondary infection. Onset: The symptoms/episode began/occurred gradually, Three to five days, and became worse and became persistent. Associated signs and symptoms: Pertinent positives: None. Severity of symptoms: At their worst the symptoms were mild in the emergency department the symptoms are unchanged. Treatment given at home: OTC lotion/cream. The patient has not experienced similar symptoms in the past. The patient has not recently seen a physician. Historical: - Allergies: 08:27 No Known Allergies; ss - Immunization history:: Adult Immunizations up to date. - Social history:: Smoking status: Patient uses tobacco products, denies chronic smoking, but will smoke occasionally. - Ebola Screening: : Patient denies exposure to infectious person Patient denies travel to an Ebola-affected area in the 21 days before illness onset. ROS: 08:37 Constitutional: Negative for fever, chills, and weight loss, Eyes: Negative for injury, kdr pain, redness, and discharge, Neck: Negative for injury, pain, and swelling, Cardiovascular: Negative for chest pain, palpitations, and edema, Respiratory: Negative for shortness of breath, cough, wheezing, and pleuritic chest pain, Abdomen/GI: Negative for abdominal pain, nausea, vomiting, diarrhea, and constipation, Back: Negative for injury and pain, : Negative for injury, bleeding, discharge, and swelling, MS/Extremity: Negative for injury and deformity, Neuro: Negative for headache, weakness, numbness, tingling, and seizure activity. Psych: Negative for depression, anxiety, suicide ideation, homicidal ideation, and hallucinations, Allergy/Immunology: Negative for hives, rash, and allergies, Endocrine: Negative for neck swelling, polydipsia, polyuria, polyphagia, and marked weight changes, Hematologic/Lymphatic: Negative for swollen nodes, abnormal bleeding, and unusual bruising. 08:37 Skin: Positive for rash, Mostly on left upper extremity/forearm and left abdomen/flank. She has some lesions in her groin area and low back. Exam: 08:37 Constitutional: This is a well developed, well nourished patient who is awake, alert, kdr and in no acute distress. Head/Face: Normocephalic, atraumatic. Eyes: Pupils equal round and reactive to light, extra-ocular motions intact. Lids and lashes normal. Conjunctiva and sclera are non-icteric and not injected. Cornea within normal limits. Periorbital areas with no swelling, redness, or edema. Neck: Trachea midline, no thyromegaly or masses palpated, and no cervical lymphadenopathy. Supple, full range of motion without nuchal rigidity, or vertebral point tenderness. No Meningismus. Chest/axilla: Normal chest wall appearance and motion. Nontender with no deformity. No lesions are appreciated. Cardiovascular: Regular rate and rhythm with a normal S1 and S2. No gallops, murmurs, or rubs. Normal PMI, no JVD. No pulse deficits. Respiratory: Lungs have equal breath sounds bilaterally, clear to auscultation and percussion. No rales, rhonchi or wheezes noted. No increased work of breathing, no retractions or nasal flaring. Abdomen/GI: Soft, non-tender, with normal bowel sounds. No distension or tympany. No guarding or rebound. No evidence of tenderness throughout. Back: No spinal tenderness. No costovertebral tenderness. Full range of motion. MS/ Extremity: Pulses equal, no cyanosis. Neurovascular intact. Full, normal range of motion. Neuro: Awake and alert, GCS 15, oriented to person, place, time, and situation. Cranial nerves II-XII grossly intact. Motor strength 5/5 in all extremities. Sensory grossly intact. Cerebellar exam normal. Normal gait. Psych: Awake, alert, with orientation to person, place and time. Behavior, mood, and affect are within normal limits. 08:37 Skin: rash a mild rash is noted, rash can be described as nonspecific, papular, raised, on the right femoral area, left femoral area, left arm and left leg. Vital Signs: 08:27 BP 135 / 91; Pulse 60; Resp 18; Temp 97.0; Pulse Ox 99% ; Weight 81.19 kg; Height 5 ft. ms 9 in. (175.26 cm); Pain 10/10; 08:27 Body Mass Index 26.43 (81.19 kg, 175.26 cm) ms MDM: 08:37 Data reviewed: vital signs, nurses notes. Counseling: I had a detailed discussion with kdr the patient and/or guardian regarding: the historical points, exam findings, and any diagnostic results supporting the discharge/admit diagnosis, the need for outpatient follow up. 08:44 Patient medically screened. kdr Administered Medications: 08:41 Not Given (Other Intervention Used): SOLU-Medrol 125 mg IVP once em 08:48 Drug: Benadryl 50 mg Route: PO; em 09:08 Follow up: Response: No adverse reaction em 08:48 Drug: Pepcid 20 mg Route: PO; em 09:08 Follow up: Response: No adverse reaction em 08:49 Drug: SOLU-Medrol 125 mg Route: IM; Site: left gluteus; em 09:08 Follow up: Response: No adverse reaction em Disposition: 10/10/18 08:44 Discharged to Home. Impression: Rash and other nonspecific skin eruption. - Condition is Stable. - Discharge Instructions: Rash, [id number]. - Prescriptions for Benadryl 25 mg Oral Capsule - take 1 capsule by ORAL route every 6 hours As needed; 30 tablet. Medrol (Serg) 4 mg Oral Tablets, Dose Pack - take 1 tablet by ORAL route as directed - follow package instructions; 1 packet. Pepcid 20 mg Oral Tablet - take 1 tablet by ORAL route once daily; 20 tablet. - Medication Reconciliation Form, Thank You Letter form. - Follow up: Private Physician; When: 2 - 3 days; Reason: If symptoms return, Further diagnostic work-up, Recheck today's complaints, Continuance of care, Re-evaluation by your physician. - Problem is new. - Symptoms have improved. Signatures: Adan Orellana MD MD kdr Fred Salmeron, CAT SCAN TECHNOLOGIST CAT SCAN TECHNOLOGIST em Leigh Ann Fairchild RN RN ss Corrections: (The following items were deleted from the chart) 09:09 08:44 10/10/2018 08:44 Discharged to Home. Impression: Rash and other nonspecific skin em eruption. Condition is Stable. Forms are Medication Reconciliation Form, Thank You Letter, Antibiotic Education, Prescription Opioid Use. Follow up: Private Physician; When: 2 - 3 days; Reason: If symptoms return, Further diagnostic work-up, Recheck today's complaints, Continuance of care, Re-evaluation by your physician. Problem is new. Symptoms have improved. kdr
[2018-10-10] MEDS ORDERED: METHYLPREDNISOLONE 125 MG INJ ONE (08:53)
[2018-10-10] MEDS ORDERED: FAMOTIDINE 20 MG TAB ONE (08:54)
[2018-10-10] MEDS ORDERED: DIPHENHYDRAMINE 25 MG TAB/CAP ONE (08:54)
== END 2018-10-10 09:09 | disposition home or self-care (01) ==
LOC: ER 08:11
DX: R21 Rash and other nonspecific skin eruption (principal); Z72.0 Tobacco use
CPT/HCPCS: 96372; 99283; J2930

== ENCOUNTER 2019-04-21 01:10 | Emergency (ER) | payer OTHER ==
[2019-04-21] MEDS ORDERED: ONDANSETRON 4 MG/2 ML VIAL ONE (03:45)
[2019-04-21] MEDS ORDERED: MEPERIDINE HCL 50 MG/ML ONE (03:45)
--- NOTE | 2019-04-21 04:54 | ER ---
Nurse's Notes [facility] Name: Stacey Oliveros Age: 53 yrs Sex: Female : 1965 Arrival Date: 04/21/2019 Time: 01:13 Bed 24 Private MD: Diagnosis: Acute low back pain. Possible prolapsed intervertebral disc Presentation: 04/21 02:12 Presenting complaint: Patient states: She is having Left hip pain radiating to L Leg wh currently a 6/10 n a pain scale when not moving. 10/10 when moving. Pt states pain started last Saturday went away and started again today. Transition of care: patient was not received from another setting of care. Onset of symptoms was April 20, 2019. Risk Assessment: Do you want to hurt yourself or someone else? Patient reports no desire to harm self or others. Initial Sepsis Screen: Does the patient meet any 2 criteria? No. Patient's initial sepsis screen is negative. Does the patient have a suspected source of infection? No. Patient's initial sepsis screen is negative. Care prior to arrival: None. 02:12 Method Of Arrival: Wheelchair 02:12 Acuity: RENEE 3 wh C[employer]IPS: 02:20 LMP N/A - wh Historical: - Allergies: 02:16 No Known Allergies; wh - Immunization history:: Adult Immunizations up to date. - Social history:: Smoking status: Patient uses tobacco products. - Ebola Screening: : Patient negative for fever greater than or equal to 101.5 degrees Fahrenheit, and additional compatible Ebola Virus Disease symptoms Patient denies exposure to infectious person. Screenin:15 Abuse screen: Denies threats or abuse. Denies injuries from another. Nutritional screening: No deficits noted. Tuberculosis screening: No symptoms or risk factors identified. Fall Risk None identified. Assessment: 02:18 General: Appears in no apparent distress. uncomfortable, Behavior is calm, cooperative, wh appropriate for age. Pain: Complains of pain in Left Hip to Left Leg Pain currently is 6 out of 10 on a pain scale. at worst was 10 out of 10 on a pain scale. Quality of pain is described as aching, Pain began 2-3 days ago. Alleviated by rest, Aggravated by increased activity, weight bearing. Neuro: Level of Consciousness is awake, alert, obeys commands, Oriented to person, place, time, situation, Appropriate for age. Cardiovascular: Capillary refill < 3 seconds. Respiratory: Airway is patent Respiratory effort is even, unlabored, Respiratory pattern is regular, symmetrical. GI: Abdomen is flat, non-distended. : No signs and/or symptoms were reported regarding the genitourinary system. EENT: No signs and/or symptoms were reported regarding the EENT system. Derm: Skin is intact, is healthy with good turgor, Skin is pink, warm \T\ dry. normal. Musculoskeletal: Range of motion: limited in Left Leg. 03:30 Reassessment: Patient appears in no apparent distress at this time. No changes from jv1 previously documented assessment. Patient and/or family updated on plan of care and expected duration. Pain level reassessed. Patient is alert, oriented x 3, equal unlabored respirations, skin warm/dry/pink. 04:20 Reassessment: Patient appears in no apparent distress at this time. No changes from jv1 previously documented assessment. Patient and/or family updated on plan of care and expected duration. Pain level reassessed. Patient is alert, oriented x 3, equal unlabored respirations, skin warm/dry/pink. 05:30 Reassessment: Patient appears in no apparent distress at this time. No changes from jv1 previously documented assessment. Patient and/or family updated on plan of care and expected duration. Pain level reassessed. Patient is alert, oriented x 3, equal unlabored respirations, skin warm/dry/pink. Vital Signs: 02:17 BP 111 / 72; Pulse 66; Resp 18; Temp 96.8; Pulse Ox 99% on R/A; wh 03:30 BP 114 / 70; Pulse 62; Resp 18; Temp 98.; Pulse Ox 100% on R/A; jv1 04:30 BP 110 / 69; Pulse 62; Resp 18; Temp 97; Pulse Ox 100% on R/A; jv1 05:35 BP 115 / 71; Pulse 68; Resp 18; Temp 98.1; Pulse Ox 100% on R/A; jv1 05:52 BP 114 / 75; Pulse 69; Resp 18; Temp 97; Pulse Ox 100% ; jv1 ED Course: 01:13 Patient arrived in ED. cf2 02:11 Carlotta Coronado is Primary Nurse. wh 02:14 Triage completed. wh 02:16 Arm band placed on right wrist. 02:17 Patient has correct armband on for positive identification. Bed in low position. Call light in reach. Side rails up X 1. Pulse ox on. NIBP on. 02:45 Kody Holguin MD is Attending Physician. pkl 03:36 CT Lumbar Spine Wo Con In Process Unspecified. EDMS 03:45 Inserted saline lock: 24 gauge in left hand, using aseptic technique. jv1 05:30 No provider procedures requiring assistance completed. IV discontinued, intact, jv1 bleeding controlled, No redness/swelling at site. Administered Medications: 03:58 Drug: Zofran 4 mg Route: IVP; Site: left hand; jv1 05:52 Follow up: BP 114 / 75; Pulse 69 bpm; Resp 18 bpm; Temp 97; Pulse Ox 100% ; Response: jv1 No adverse reaction; Nausea is decreased 04:00 Drug: Demerol 50 mg {Note: RASS 0.} Route: IVP; Site: left hand; jv1 05:53 Follow up: Response: No adverse reaction; Pain is decreased; RASS: Alert and Calm (0) jv1 Outcome: 04:52 Discharge ordered by . pkl 05:30 Discharged to home via wheelchair. jv1 05:30 Condition: stable 05:30 Condition: good 05:30 Discharge instructions given to patient, Instructed on discharge instructions, follow up and referral plans. no drinking with medication, no driving heavy equipment, medication usage, POC 05:54 Patient left the ED. jv1 Signatures: Dispatcher [employer] EDWI Kody Holguin MD MD pkl Carlotta Coronado Radha Parker, RN RN jv1 Foster Shahid2
--- NOTE | 2019-04-21 04:55 | EDPHYS ---
Physician Documentation [facility] Name: Stacey Oliveros Age: 53 yrs Sex: Female : 1965 Arrival Date: 04/21/2019 Time: 01:13 Bed 24 Private MD: ED Physician Kody Holguin HPI: 04/21 03:07 This 53 yrs old Black Female presents to ER via Wheelchair with complaints of Back Pain.pkl 03:07 The patient presents with pain that is acute. The symptoms are located in the low back. pkl Onset: The symptoms/episode began/occurred 4 day(s) ago. The pain radiates to the left leg. SALES MANAGEMENT INTERN: 02:20 LMP N/A - wh Historical: - Allergies: 02:16 No Known Allergies; wh - Immunization history:: Adult Immunizations up to date. - Social history:: Smoking status: Patient uses tobacco products. - Ebola Screening: : Patient negative for fever greater than or equal to 101.5 degrees Fahrenheit, and additional compatible Ebola Virus Disease symptoms Patient denies exposure to infectious person. ROS: 03:07 Eyes: Negative for injury, pain, redness, and discharge, ENT: Negative for injury, pkl pain, and discharge, Neck: Negative for injury, pain, and swelling, Cardiovascular: Negative for chest pain, palpitations, and edema, Respiratory: Negative for shortness of breath, cough, wheezing, and pleuritic chest pain, Abdomen/GI: Negative for abdominal pain, nausea, vomiting, diarrhea, and constipation. 03:07 Back: Positive for pain with movement. 03:07 : Negative for urinary symptoms. 03:07 MS/extremity: Negative for acute changes. 03:07 Skin: Negative for rash. 03:07 Neuro: Negative for altered mental status. Exam: 03:07 Head/Face: Normocephalic, atraumatic. Eyes: Pupils equal round and reactive to light, pkl extra-ocular motions intact. Lids and lashes normal. Conjunctiva and sclera are non-icteric and not injected. Cornea within normal limits. Periorbital areas with no swelling, redness, or edema. ENT: Nares patent. No nasal discharge, no septal abnormalities noted. Tympanic membranes are normal and external auditory canals are clear. Oropharynx with no redness, swelling, or masses, exudates, or evidence of obstruction, uvula midline. Mucous membranes moist. Neck: Trachea midline, no thyromegaly or masses palpated, and no cervical lymphadenopathy. Supple, full range of motion without nuchal rigidity, or vertebral point tenderness. No Meningismus. Chest/axilla: Normal chest wall appearance and motion. Nontender with no deformity. No lesions are appreciated. Cardiovascular: Regular rate and rhythm with a normal S1 and S2. No gallops, murmurs, or rubs. Normal PMI, no JVD. No pulse deficits. Respiratory: Lungs have equal breath sounds bilaterally, clear to auscultation and percussion. No rales, rhonchi or wheezes noted. No increased work of breathing, no retractions or nasal flaring. Abdomen/GI: Soft, non-tender, with normal bowel sounds. No distension or tympany. No guarding or rebound. No evidence of tenderness throughout. 03:07 Back: pain, that is moderate, of the lower back, ROM is painful, with all movement, Straight leg raises: left lower extremity illicits pain, at 30 degrees. 03:10 Musculoskeletal/extremity: Exam is negative for acute changes. pkl 03:10 Skin: Exam negative for rash. 03:10 Neuro: Orientation: is normal, Mentation: is normal, Cranial nerves: grossly normal, Motor: is normal. Vital Signs: 02:17 BP 111 / 72; Pulse 66; Resp 18; Temp 96.8; Pulse Ox 99% on R/A; wh 03:30 BP 114 / 70; Pulse 62; Resp 18; Temp 98.; Pulse Ox 100% on R/A; jv1 04:30 BP 110 / 69; Pulse 62; Resp 18; Temp 97; Pulse Ox 100% on R/A; jv1 05:35 BP 115 / 71; Pulse 68; Resp 18; Temp 98.1; Pulse Ox 100% on R/A; jv1 05:52 BP 114 / 75; Pulse 69; Resp 18; Temp 97; Pulse Ox 100% ; jv1 MDM: 02:45 Patient medically screened. pkl 04:48 Data reviewed: vital signs, nurses notes, radiologic studies, CT scan. ED course: pkl Patient feeling better. Discussed CT Scan result with patient. Advised MRI lumbar spines if pain persists. To see PCP in 2 to 3 days for follow up. Patient understood instructions. 04/21 03:07 Order name: CT Lumbar Spine Wo Con pkl 04/21 03:06 Order name: Saline Lock; Complete Time: 03:53 pkl Administered Medications: 03:58 Drug: Zofran 4 mg Route: IVP; Site: left hand; jv1 05:52 Follow up: BP 114 / 75; Pulse 69 bpm; Resp 18 bpm; Temp 97; Pulse Ox 100% ; Response: jv1 No adverse reaction; Nausea is decreased 04:00 Drug: Demerol 50 mg {Note: RASS 0.} Route: IVP; Site: left hand; jv1 05:53 Follow up: Response: No adverse reaction; Pain is decreased; RASS: Alert and Calm (0) jv1 Disposition: 04/21/19 04:52 Discharged to Home. Impression: Acute low back pain. Possible prolapsed intervertebral disc. - Condition is Stable. - Prescriptions for Tylenol- Codeine #3 300-30 mg Oral Tablet - take 1 tablet by ORAL route every 6 hours As needed; 20 tablet. - Medication Reconciliation Form, Thank You Letter, Antibiotic Education, Prescription Opioid Use, Work release form form. - Follow up: Private Physician; When: 2 - 3 days; Reason: Re-evaluation by your physician. - Problem is new. - Symptoms have improved. Signatures: Dispatcher [employer] EDKody Hogue MD MD pkl Habalo, Winsy wh Vicente, Joyce RN RN jv1 Corrections: (The following items were deleted from the chart) 05:54 04:52 04/21/2019 04:52 Discharged to Home. Impression: Acute low back pain. Possible jv1 prolapsed intervertebral disc. Condition is Stable. Forms are Medication Reconciliation Form, Thank You Letter, Antibiotic Education, Prescription Opioid Use. Follow up: Private Physician; When: 2 - 3 days; Reason: Re-evaluation by your physician. Problem is new. Symptoms have improved. pkl
--- NOTE | 2019-04-21 10:03 | RAD REPORT ---
EXAM DESCRIPTION: CT - Spine Lumbar Wo Con - 04/21/2019 6:55 am CLINICAL HISTORY: 53-year-old female with radiculopathy. TECHNIQUE: Multiple high-resolution thin axial CT images were performed through the lumbar spine fol lowed by sagittal and coronal reconstructed images. The CT study is performed according to ALARA (as low as reasonably achievable) or ALARA/IMAGE GENTLY, with automatic adjustment of mA and/or kV accord ing to patient size. Performed on: 04/21/2019 at 3: 29 AM COMPARISON: None FINDINGS: The lumbar vertebrae are normal in height. There is normal alignment of the vertebrae. T he disc spaces are well preserved in height. Bone mineralization is normal. There is normal alignment of the facet joints on the parasagittal images. There are mild degenerative changes of the facet joints and there is minimal degenerative endplate spurring. There is no evidence of acute fracture or subluxation. There is no significant canal stenosis. Th ere is mild right L5-S1 neural foraminal stenosis secondary to a disc osteophyte complex and the disc osteophyte complex at this level may contact the exiting right L5 nerve root. The paravertebral an d paraspinal soft tissues are unremarkable. IMPRESSION: 1. No evidence of acute osseous injury involving the lumbar spine. 2. Right neural foraminal stenosis at L5-S1 secondary to a disc osteophyte complexwhich may contact t he exiting right L5 nerve root. Correlate clinically for symptoms referable to this nerve root. Electronically signed by: Christal Arndt DO 04/21/2019 3:48 AM CDT Due to temporary technical issues with the PACS/Fluency reporting system, reports are being signed by the in house radiologist as a courtesy to ensure prompt reporting. The interpreting radiologist is f ully responsible for the content of the report.
== END 2019-04-21 05:54 | disposition home or self-care (01) ==
LOC: ER 01:10
DX: M54.5 Low back pain (principal); Z72.0 Tobacco use
CPT/HCPCS: 72131; 96375; 96374; 99284; J2175; J2405

== ENCOUNTER 2019-09-20 12:36 | Emergency (ER) | payer OTHER, SELFPAY ==
[2019-09-20 14:15] LABS: Absolute Lymphocytes (CBC) 2.7 K/uL (0.7-4.9); Basophils % 0.8 % (0-1.3); Hematocrit 35.5 % (36.0-45.0); Lymphocytes % 26.7 % (15.3-44.8); MPV 8.1 fL (7.6-11.3); RBC Red Blood Cell Count 4.07 M/uL (3.86-4.86)
[2019-09-20 14:32] LABS: Bilirubin Total 0.3 mg/dL (0.2-1.0); Potassium 3.8 mmol/L (3.5-5.1); Protein, Total 8.7 g/dL (6.4-8.2)
--- NOTE | 2019-09-20 14:43 | RAD REPORT ---
EXAM DESCRIPTION: RAD - Chest Pa And Lat (2 Views) - 09/20/2019 1:53 pm CLINICAL HISTORY: fever, cough COMPARISON: Chest Pa And Lat (2 Views) dated 05/27/2018; Chest Single View dated 05/26/2018 TECHNIQUE: Frontal and lateral views of the chest were obtained. FINDINGS: The lungs are clear of focal abnormality. Interstitial pattern matches comparison. Left b ase is better aerated than on comparisons. Heart size is normal and central vasculature is within nor mal limits. No pleural effusion or pneumothorax seen. No acute bony finding noted. No aortic abnor mality. IMPRESSION: No acute cardiopulmonary process.
[2019-09-20] MEDS ORDERED: NA CHLORIDE 0.9% 500 ML ONE (15:08)
[2019-09-20] MEDS ORDERED: LEVALBUTEROL 1.25 MG/3 ML NEB ONE (15:08)
[2019-09-20] MEDS ORDERED: IBUPROFEN 200 MG TAB PO ONE (15:08)
--- NOTE | 2019-09-20 15:43 | EDPHYS ---
Physician Documentation [facility] Name: Stacey Oliveros Age: 54 yrs Sex: Female : 1965 Arrival Date: 09/20/2019 Time: 12:39 Bed 13 Private MD: ED Physician Joshua Mariano HPI: 09/20 13:25 This 54 yrs old Black Female presents to ER via Ambulatory with complaints of Flu jmm Symptoms. 13:25 The patient or guardian reports cough. Onset: The symptoms/episode began/occurred jmm gradually, 3 day(s) ago. Modifying factors: The symptoms are alleviated by nothing. the symptoms are aggravated by nothing. Associated signs and symptoms: Pertinent positives:. The patient has experienced a previous episode. This is a 54 year old female with no known chronic medical conditions that presents to the ED with complaints of cough, congestion, sore throat, chest pain beginning 3 days ago worsening today. Patient states having similar symptoms when diagnosed with pneumonia 1 year prior. . 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 - Coronavirus screen:: The patient has NOT traveled to [place], [place], or [place] in the past 14 days. - Social history:: Smoking status: Patient reports the use of cigarette tobacco products, smokes one-half pack cigarettes per day. - Ebola Screening: : Patient denies travel to an Ebola-affected area in the 21 days before illness onset. ROS: 13:25 Constitutional: Positive for body aches, fever. jmm 13:25 ENT: Positive for sore throat. 13:25 Cardiovascular: Positive for chest pain, with cough. 13:25 Respiratory: Positive for cough. 13:25 All other systems are negative. Exam: 13:25 Constitutional: This is a well developed, well nourished patient who is awake, alert, jmm and in no acute distress. Head/Face: atraumatic. Eyes: EOMI, no conjunctival erythema appreciated ENT: Moist Mucus Membranes Neck: Trachea midline, Supple Chest/axilla: Normal chest wall appearance and motion. 13:25 Abdomen/GI: Non distended, soft Back: Normal ROM Skin: General appearance color normal MS/ Extremity: Moves all extremities, no obvious deformities appreciated, no edema noted to the lower extremities Neuro: Awake and alert, normal gait Psych: Behavior is normal, Mood is normal, Patient is cooperative and pleasant 13:25 Cardiovascular: Rate: normal, Rhythm: regular, Pulses: no pulse deficits are appreciated. 13:25 Respiratory: the patient does not display signs of respiratory distress, Respirations: normal, Breath sounds: decreased breath sounds, that are moderate, are heard in the right posterior upper lobe and right posterior middle lobe. Vital Signs: 12:55 BP 114 / 80; Pulse 88; Resp 18; Temp 99.6; Pulse Ox 100% on R/A; Weight 77.11 kg (R); aj1 Height 5 ft. 9 in. (175.26 cm) (R); Pain 9/10; 15:00 BP 112 / 72; Pulse 77; Resp 16; Temp 98.8; Pulse Ox 100% on R/A; sg 12:55 Body Mass Index 25.10 (77.11 kg, 175.26 cm) [facility] MDM: 13:20 Patient medically screened. irwin 15:41 Data reviewed: vital signs, nurses notes. Counseling: I had a detailed discussion with anitha the patient and/or guardian regarding: the historical points, exam findings, and any diagnostic results supporting the discharge/admit diagnosis, lab results, radiology results, the need for outpatient follow up, to return to the emergency department if symptoms worsen or persist or if there are any questions or concerns that arise at home. ED course: Patient is alert and non toxic in appearance in the ED. Patient is advised to follow up with pcp and otherwise given strict return precautions. Patient understood and agrees with the plan of care. . 09/20 12:57 Order name: Flu; Complete Time: 13:25 [facility] 09/20 12:57 Order name: Strep; Complete Time: 13:25 [facility] 09/20 13:28 Order name: Throat Culture [facility] 09/20 13:29 Order name: CBC with Diff; Complete [facility]: 14:31 [facility] 09/20 13:29 Order name: CMP; Complete Time: 14:33 [facility] 09/20 13:29 Order name: Lactate; Complete Time: 14:35 [facility] 09/20 13:29 Order name: Procalcitonin; Complete Time: 14:46 [facility] 09/20 13:29 Order name: Chest Pa And Lat (2 Views) XRAY; Complete Time: 14:44 [facility] Administered Medications: 15:00 Drug: NS 0.9% 500 ml Route: IV; Rate: bolus; Site: right antecubital; sg 15:14 Not Given (Patient Refused; no motrin due to ulcers): Motrin 600 mg PO once sg 15:14 Drug: Xopenex (3) 1.25 mg Route: Inhalation; sg Disposition: 09/21 07:37 Co-signature as Attending Physician, Joshua Mariano MD I agree with the assessment and irwin plan of care. Disposition: 09/20/19 15:42 Discharged to Home. Impression: Other viral infections of unspecified site. - Condition is Stable. - Discharge Instructions: Influenza, Adult, Viral Respiratory Infection. - Prescriptions for Bromfed DM 2- 30-10 mg/5 mL Oral syrup - take 10 milliliter by ORAL route every 4 hours; 1 bottle. Albuterol Sulfate 90 mcg/actuation - inhale 1-2 puff by INHALATION route every 4-6 hours; 1 Inhaler. Tamiflu 75 mg Oral Capsule - take 1 tablet by ORAL route every 12 hours for 5 days; 10 tablet. - Medication Reconciliation Form, Thank You Letter, Antibiotic Education, Prescription Opioid Use, Work release form form. - Follow up: Private Physician; When: 2 - 3 days; Reason: Recheck today's complaints, Continuance of care, Re-evaluation by your physician. Signatures: Dispatcher [employer] Vanita Bedoya RN RN aj1 Santhosh Thomas RN RN sg Anderson, Corey, MD MD cha Mickail, Joel, PA PA jmm Villarreal, Maria ms Corrections: (The following items were deleted from the chart) 09/20 15:58 15:42 09/20/2019 15:42 Discharged to Home. Impression: Other viral infections of ms unspecified site. Condition is Stable. Forms are Medication Reconciliation Form, Thank You Letter, Antibiotic Education, Prescription Opioid Use. Follow up: Private Physician; When: 2 - 3 days; Reason: Recheck today's complaints, Continuance of care, Re-evaluation by your physician. jmm
--- NOTE | 2019-09-20 15:43 | ER ---
Nurse's Notes [facility] Name: Stacey Oliveros Age: 54 yrs Sex: Female : 1965 Arrival Date: 09/20/2019 Time: 12:39 Bed 13 Private MD: Diagnosis: Other viral infections of unspecified site Presentation: 09/20 12:52 Presenting complaint: Patient states: Generalized body aches, fever, cough, and aj1 congestion for the past 3 days. Transition of care: patient was not received from another setting of care. Onset of symptoms was August 2019. Risk Assessment: Do you want to hurt yourself or someone else? Patient reports no desire to harm self or others. Initial Sepsis Screen: Does the patient meet any 2 criteria? No. Patient's initial sepsis screen is negative. Does the patient have a suspected source of infection? Yes: Productive cough/pneumonia. Care prior to arrival: None. 12:52 Method Of Arrival: Ambulatory aj1 12:52 Acuity: RENEE 4 aj1 Triage Assessment: 12:55 General: Appears in no apparent distress. uncomfortable, Behavior is calm, cooperative, aj1 appropriate for age. Pain: Pain currently is 9 out of 10 on a pain scale. EENT: Reports nasal congestion nasal discharge. Neuro: Level of Consciousness is awake, alert, obeys commands, Oriented to person, place, time, situation. Cardiovascular: Patient's skin is warm and dry. Respiratory: Airway is patent Respiratory effort is even, unlabored, Respiratory pattern is regular, symmetrical. 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 - Coronavirus screen:: The patient has NOT traveled to [place], [place], or [place] in the past 14 days. - Social history:: Smoking status: Patient reports the use of cigarette tobacco products, smokes one-half pack cigarettes per day. - Ebola Screening: : Patient denies travel to an Ebola-affected area in the 21 days before illness onset. Screenin:50 Abuse screen: Denies threats or abuse. Denies injuries from another. Abuse screen: sg Denies threats or abuse. Nutritional screening: No deficits noted. Tuberculosis screening: No symptoms or risk factors identified. Never had TB. Fall Risk None identified. Assessment: 13:40 General: Appears in no apparent distress. well groomed, well developed, well nourished, sg Behavior is calm, cooperative, appropriate for age. Pain: Complains of pain in body aches Quality of pain is described as aching. Neuro: Level of Consciousness is awake, alert, obeys commands, Oriented to person, place, time. Cardiovascular: Patient's skin is warm and dry. Chest pain is denied. Respiratory: Reports cough that is non-productive, dry, Airway is patent Respiratory effort is even, unlabored, Respiratory pattern is regular, symmetrical, Breath sounds are coarse. GI: No signs and/or symptoms were reported involving the gastrointestinal system. : No signs and/or symptoms were reported regarding the genitourinary system. EENT: Oral mucosa is moist. Throat is pink Reports nasal discharge. Derm: Skin is intact, is healthy with good turgor, Skin is dry, Skin is normal, Skin temperature is warm. Musculoskeletal: No signs and/or symptoms reported regarding the musculoskeletal system. Vital Signs: 12:55 BP 114 / 80; Pulse 88; Resp 18; Temp 99.6; Pulse Ox 100% on R/A; Weight 77.11 kg (R); aj1 Height 5 ft. 9 in. (175.26 cm) (R); Pain 9/10; 15:00 BP 112 / 72; Pulse 77; Resp 16; Temp 98.8; Pulse Ox 100% on R/A; sg 12:55 Body Mass Index 25.10 (77.11 kg, 175.26 cm) aj1 ED Course: 12:39 Patient arrived in ED. mr 12:55 Triage completed. aj1 12:55 Arm band placed on Patient placed in waiting room. aj1 13:17 Jose Cox PA is PHCP. [facility] 13:17 Joshua Mariano MD is Attending Physician. juan 13:21 Leigh Ann Fairchild, JOHN is Primary Nurse. ss 13:40 Patient has correct armband on for positive identification. Bed in low position. Call sg light in reach. Pulse ox on. NIBP on. 13:50 Chest Pa And Lat (2 Views) XRAY In Process Unspecified. EDNH 14:09 Initial lab(s) drawn, by me, sent to lab. Inserted saline lock: 22 gauge in right jb1 antecubital area, using aseptic technique. Blood collected. 15:02 Primary Nurse role handed off by Leigh Ann Fairchild, JOHN 15:02 Santhosh Thomas, RN is Primary Nurse. sg 15:34 Throat Culture Sent. sg 15:50 No provider procedures requiring assistance completed. IV discontinued, intact, sg bleeding controlled, No redness/swelling at site. Pressure dressing applied. Administered Medications: 15:00 Drug: NS 0.9% 500 ml Route: IV; Rate: bolus; Site: right antecubital; sg 15:14 Not Given (Patient Refused; no motrin due to ulcers): Motrin 600 mg PO once sg 15:14 Drug: Xopenex (3) 1.25 mg Route: Inhalation; sg Outcome: 15:42 Discharge ordered by MD. [facility] 15:50 Discharged to home ambulatory, with family. sg 15:50 Condition: good 15:50 Discharge instructions given to patient, Instructed on discharge instructions, follow up and referral plans. medication usage, safety practices, Demonstrated understanding of instructions, follow-up care, medications, Prescriptions given X 3. 15:58 Patient left the ED. ms Signatures: Dispatcher [employer] EDNH Teddy Marley jb1 Vanita Whatley, JOHN RN aj1 Santhosh Thomas, JOHN LOPEZ Jose Cox PA PA jmm Rivera, Mary mr Sharda Chester ms Leigh Ann Fairchild RN RN
[2019-09-20 16:28] VITALS: BP 114/80; TEMP 99.6; O2SAT 100
== END 2019-09-20 15:58 | disposition home or self-care (01) ==
LOC: ER 12:36
DX: B34.8 Other viral infections of unspecified site (principal); F17.210 Nicotine dependence, cigarettes, uncomplicated
CPT/HCPCS: 36415; 71046; 80053; 83605; 84145; 85025; 87070; 87081; 87804; 99284; J7040

== ENCOUNTER 2020-01-12 08:43 | Emergency (ER) | payer OTHER, SELFPAY ==
[2020-01-12] MEDS ORDERED: KETOROLAC 30 MG/ML INJ ONE (10:40)
--- NOTE | 2020-01-12 10:56 | RAD REPORT ---
EXAM DESCRIPTION: RAD - Pelvis - 01/12/2020 9:45 am CLINICAL HISTORY: fall, right sided pain COMPARISON: No comparisons TECHNIQUE: AP imaging of the pelvis was obtained. FINDINGS: Lower lumbar degenerative changes are present only partially imaged on this study. No pelv ic fracture seen. No acute hip joint abnormality. Phleboliths are seen in the pelvis. IMPRESSION: No pelvic fracture. No acute hip joint finding suspected. Lower lumbar degenerative change only partially imaged.
--- NOTE | 2020-01-12 10:56 | RAD REPORT ---
EXAM DESCRIPTION: RAD - Femur Right - 01/12/2020 9:45 am CLINICAL HISTORY: PAIN, fall COMPARISON: No comparisons FINDINGS: No fracture, dislocation or periosteal reaction noted. No acute or suspicious bony finding . No air or foreign body in the soft tissues. Knee joint findings are separately detailed. IMPRESSION: Negative right femur examination.
--- NOTE | 2020-01-12 10:57 | RAD REPORT ---
EXAM DESCRIPTION: RAD - Knee Right 3 View - 01/12/2020 9:45 am CLINICAL HISTORY: PAIN, fall, knee trauma COMPARISON: No comparisons FINDINGS: No fracture, dislocation or periosteal reaction.Small joint effusion is evident. No joint space narrowing. No foreign body or other soft tissue abnormality. Minimal spurring at the quadriceps tendon attachment site. Fabella seen posterior joint. IMPRESSION: Small joint effusion is evident. No acute bone finding. Clinical concerns for internal derangement or occult bony injury could be further assessed with MR im aging.
[2020-01-12 11:19] VITALS: TEMP 98.5; O2SAT 97
[2020-01-12 11:20] VITALS: BP 126/87
--- NOTE | 2020-01-13 14:12 | RAD REPORT ---
EXAM DESCRIPTION: CT - HEAD WITHOUT CONTRAST CLINICAL HISTORY: Hit head on concrete, headache. COMPARISON: CT head May 2018. TECHNIQUE: Axial computed tomography of the head/brain without intravenous contrast. Sagittal and coronal reformatted images were created and reviewed. This exam was performed according to our departmental dose-optimization program, which includes automated exposure control, adjustment of the mA and/or kV according to patient size and/or use of iterative reconstruction technique. FINDINGS: No intracranial hemorrhage. No edema, mass effect or shift of midline structures. Intracranial findings are similar to comparison. Mastoid air cells and paranasal sinuses are clear of any acute or significant finding. No skull fracture or acute bone finding. IMPRESSION: 1. Non-contrast CT head examination showing no acute finding. 2. No significant change from May 2018.
--- NOTE | 2020-01-18 13:08 | EDPHYS ---
Physician Documentation [facility] Name: Stacey Oliveros Age: 54 yrs Sex: Female : 1965 Arrival Date: 01/12/2020 Time: 08:46 Bed 6 Private MD: ED Physician Shmuel Gee HPI: 01/11 08:56 This 54 yrs old Black Female presents to ER via Unassigned with complaints of Knee rn Pain, Headache. 08:56 The patient presents with decreased range of motion, an injury, pain. The complaints rn affect the right upper thigh, right quadriceps and right knee. Onset: The symptoms/episode began/occurred 5 day(s) ago. Modifying factors: The symptoms are alleviated by remaining still, knee brace. the symptoms are aggravated by movement, weight bearing. Associated signs and symptoms: Pertinent positives: tingling, Pertinent negatives fever, rash, warmth, weakness. Severity of symptoms: At their worst the symptoms were mild, in the emergency department the symptoms are unchanged. The patient has not experienced similar symptoms in the past. 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 Reports most of pain is back right side of head and right knee upon flexion.. 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 - Social history:: Smoking status: Patient reports the use of cigarette tobacco products, smokes one-half pack cigarettes per day. - Family history:: not pertinent. - Hospitalizations: : No recent hospitalization is reported. ROS: 08:56 Constitutional: Negative for fever, chills, and weight loss, Eyes: Negative for injury, rn pain, redness, and discharge, Neck: Negative for injury, pain, and swelling, Cardiovascular: Negative for chest pain, palpitations, and edema, Respiratory: Negative for shortness of breath, cough, wheezing, and pleuritic chest pain, Abdomen/GI: Negative for abdominal pain, nausea, vomiting, diarrhea, and constipation, Back: Negative for injury and pain, MS/Extremity: + right hip/knee pain Skin: Negative for injury, rash, and discoloration, Neuro: + headache, no focal weakness Exam: 08:56 Constitutional: This is a well developed, well nourished patient who is awake, alert, 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 + mild tenderness right occiput, no open wounds Eyes: Pupils equal round and reactive to light, extra-ocular motions intact. Lids and lashes normal. Conjunctiva and sclera are non-icteric and not injected. Cornea within normal limits. Periorbital areas with no swelling, redness, or edema. Neck: No midline tenderness Back: No spinal tenderness. No costovertebral tenderness. Full range of motion. Skin: Warm, dry, no lacerations MS/ Extremity: Pulses equal, no cyanosis. Neurovascular intact. + mild pain with passive flexion of knee, mild pain with flexion right hip. No patellar tenderness. Neuro: Awake and alert, GCS 15, oriented to person, place, time, and situation. Cranial nerves II-XII grossly intact. Motor strength 5/5 in all extremities. Sensory grossly intact. Cerebellar exam normal. Normal gait. Vital Signs: 08:59 BP 137 / 87; Pulse 78; Resp 17; Temp 98.5; Pulse Ox 97% ; Pain 6/10; jl7 10:35 BP 126 / 87; Pulse 63; Resp 17; Pulse Ox 97% ; jl7 MDM: 08:49 Patient medically screened. rn 09:31 ED course: [facility] shows scores of 040/020/000/190.. rn 10:50 Differential diagnosis: closed fracture, contusion, tendonitis. Data reviewed: vital rn signs, nurses notes, radiologic studies, CT scan, plain films, and as a result, I will discharge patient. Test interpretation: by ED physician or midlevel provider: plain radiologic studies, Xrays pelvis/femur/knee neg for fracture/dislocation. Counseling: I had a detailed discussion with the patient and/or guardian regarding: the historical points, exam findings, and any diagnostic results supporting the discharge/admit diagnosis, radiology results, the need for outpatient follow up, to return to the emergency department if symptoms worsen or persist or if there are any questions or concerns that arise at home. Response to treatment: the patient's symptoms have mildly improved after treatment, and as a result, I will discharge patient. Special discussion: I discussed with the patient/guardian in detail that at this point there is no indication for admission to the hospital. It is understood, however, that if the symptoms persist or worsen the patient needs to return immediately for re-evaluation. ED course: Per Dr. Longo, no acute findings on xray knee/pelvis/femur. No acute findings on CT head. Will d chome with OTC pain meds and muscle relaxer. Pt wants to return to work, will give light duty. . 01/11 08:56 Order name: XRAY Knee RIGHT 3 view rn 01/11 08:56 Order name: XRAY Femur RIGHT rn 01/11 08:56 Order name: CT Head Brain wo Cont rn 01/11 08:56 Order name: XRAY Pelvis rn Administered Medications: 10:40 Drug: TORadol - Ketorolac 15 mg Route: IM; Site: left deltoid; jl7 11:04 Follow up: Response: No adverse reaction; Pain is decreased jl7 Disposition: 01/12/20 10:52 Discharged to Home. Impression: Contusion of right knee, Contusion of right hip, Superficial injury of head. - Condition is Stable. - Discharge Instructions: Contusion, Head Injury, Adult, Knee Effusion, Knee Pain. - Prescriptions for Cyclobenzaprine 5 mg Oral Tablet - take 1 tablet by ORAL route 3 times per day As needed; 15 tablet. - Medication Reconciliation Form, Thank You Letter, Antibiotic Education, Prescription Opioid Use, Work release form form. - Follow up: Private Physician; When: As needed; Reason: Recheck today's complaints, Re-evaluation by your physician. - Problem is new. - Symptoms have improved. Signatures: Dispatcher [employer] EDMS Shmuel Gee MD MD rn Leal, Jahala, RN RN jl7 Corrections: (The following items were deleted from the chart) 11:04 10:52 01/12/2020 10:52 Discharged to Home. Impression: Contusion of right knee; jl7 Contusion of right hip; Superficial injury of head. Condition is Stable. Discharge Instructions: Contusion, Head Injury, Adult, Knee Pain. Prescriptions for Cyclobenzaprine 5 mg Oral Tablet - take 1 tablet by ORAL route 3 times per day As needed; 15 tablet. and Forms are Medication Reconciliation Form, Thank You Letter, Antibiotic Education, Prescription Opioid Use. Follow up: Private Physician; When: As needed; Reason: Recheck today's complaints, Re-evaluation by your physician. Problem is new. Symptoms have improved. rn
--- NOTE | 2020-01-18 13:08 | ER ---
Nurse's Notes [facility] Name: Stacey Oliveros Age: 54 yrs Sex: Female : 1965 Arrival Date: 01/12/2020 Time: 08:46 Bed 6 Private MD: Diagnosis: Contusion of right knee;Contusion of right hip;Superficial injury of head Presentation: 01/11 08:59 Chief complaint: Patient states: Pt reports one of her pt's fell on top of her on jl7 while at work. Pt hit her head, denies LOC, Reports BEJARANO, right hip pain and posterior right knee pain. Coronavirus screen: Proceed with normal triage. Patient denies a cough. Patient denies shortness of breath or difficulty breathing. Patient denies measured and/or subjective temperature greater than 100.4F prior to today's visit. Patient denies travel on a cruise ship or to a country the [facility] currently lists as an affected area. Patient denies contact with known and/or suspected case of COVID-19. Ebola Screen: No symptoms or risks identified at this time. Initial Sepsis Screen: Does the patient meet any 2 criteria? No. Patient's initial sepsis screen is negative. Does the patient have a suspected source of infection? No. Patient's initial sepsis screen is negative. Risk Assessment: Do you want to hurt yourself or someone else? Patient reports no desire to harm self or others. Onset of symptoms was January 07, 2020. Care prior to arrival: None. 08:59 Method Of Arrival: Ambulatory jl7 08:59 Acuity: RENEE 4 jl7 Triage Assessment: 09:04 Headache History: Other "It's hurting where I fell.". General: Appears in no apparent jl7 distress. uncomfortable, Behavior is calm, cooperative, appropriate for age, crying. Pain: Complains of pain in right occipital area, right hip and posterior aspect of right knee Pain does not radiate. Pain currently is 6 out of 10 on a pain scale. Pain began 2-3 days ago. Is continuous, Also complains of no other associated symptoms. Neuro: Level of Consciousness is awake, alert, obeys commands, Oriented to person, place, time, situation. Cardiovascular: Patient's skin is warm and dry. Respiratory: Airway is patent Respiratory effort is even, unlabored, Respiratory pattern is regular, symmetrical. Derm: Skin is pink, warm \\T\\ dry. Musculoskeletal: Range of motion: limited in right knee. 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 - Social history:: Smoking status: Patient reports the use of cigarette tobacco products, smokes one-half pack cigarettes per day. - Family history:: not pertinent. - Hospitalizations: : No recent hospitalization is reported. Screenin:07 Abuse screen: Denies threats or abuse. Denies injuries from another. Nutritional jl7 screening: No deficits noted. Tuberculosis screening: No symptoms or risk factors identified. Fall Risk None identified. Assessment: 09:07 General: See triage assessment. jl7 10:30 Reassessment: Patient appears in no apparent distress at this time. No changes from jl7 previously documented assessment. Patient and/or family updated on plan of care and expected duration. Pain level reassessed. Patient is alert, oriented x 3, equal unlabored respirations, skin warm/dry/pink. 10:30 Pain: Complains of pain in right leg and posterior aspect of right knee and right hip jl7 Pain currently is 6 out of 10 on a pain scale. 10:45 Reassessment: Dr. Gee at bedside discussing preliminary results and POC, pt jl7 verbalizes understanding. Vital Signs: 08:59 BP 137 / 87; Pulse 78; Resp 17; Temp 98.5; Pulse Ox 97% ; Pain 6/10; jl7 10:35 BP 126 / 87; Pulse 63; Resp 17; Pulse Ox 97% ; jl7 ED Course: 08:46 Patient arrived in ED. ag5 08:49 Shmuel Gee MD is Attending Physician. rn 08:58 Michelle Parker RN is Primary Nurse. jl7 09:04 Triage completed. jl7 09:04 Arm band placed on right wrist. jl7 09:07 Patient has correct armband on for positive identification. Bed in low position. Call jl7 light in reach. Side rails up X 1. 09:27 CT Head Brain wo Cont In Process Unspecified. EDMS 09:46 XRAY Knee RIGHT 3 view In Process Unspecified. EDMS 09:46 XRAY Femur RIGHT In Process Unspecified. EDMS 09:46 XRAY Pelvis In Process Unspecified. EDMS 10:56 No provider procedures requiring assistance completed. Patient did not have IV access jl7 during this emergency room visit. Administered Medications: 10:40 Drug: TORadol - Ketorolac 15 mg Route: IM; Site: left deltoid; jl7 11:04 Follow up: Response: No adverse reaction; Pain is decreased jl7 Outcome: 10:52 Discharge ordered by . rn 11:04 Discharged to home ambulatory. jl7 11:04 Condition: stable 11:04 Discharge instructions given to patient, Instructed on discharge instructions, follow up and referral plans. medication usage, Demonstrated understanding of instructions, follow-up care, medications, Prescriptions given X 1. 11:04 Patient left the ED. jl7 Signatures: Dispatcher [employer] Shmuel Armijo MD MD rn Leal, Jahala, RN RN jl7 Imtiaz Ortiz 5
== END 2020-01-12 11:04 | disposition home or self-care (01) ==
LOC: ER 08:43
DX: S00.90XA Unspecified superficial injury of unspecified part of head, initial encounter (principal); S80.01XA Contusion of right knee, initial encounter; S70.01XA Contusion of right hip, initial encounter; F17.210 Nicotine dependence, cigarettes, uncomplicated; W19.XXXA Unspecified fall, initial encounter; Y93.89 Activity, other specified; Y92.89 Other specified places as the place of occurrence of the external cause; Y99.8 Other external cause status
CPT/HCPCS: 70450; 72170; 96372; 99283

== ENCOUNTER 2021-08-16 10:32 | Emergency (ER) | payer SELFPAY ==
[2021-08-16 13:08] LABS: SARS-COV-2 RT PCR POSITIVE (NEGATIVE)
[2021-08-16] MEDS ORDERED: IBUPROFEN 400 MG TAB ONE (13:10)
[2021-08-16] MEDS ORDERED: PEN G BENZ LA 1.2MU/2ML SYRINGE IM ONE (13:11)
[2021-08-16] MEDS ORDERED: ACETAMINOPHEN 500 MG TAB ONE (13:27)
--- NOTE | 2021-08-16 13:37 | ER ---
Nurse's Notes [facility] Name: Stacey Oliveros Age: 56 yrs Sex: Female : 1965 Arrival Date: 08/16/2021 Time: 10:33 Bed 12 Private MD: Diagnosis: Streptococcal pharyngitis;SARS-associated coronavirus as the cause of diseases classified elsewhere Presentation: 08/16 11:31 Chief complaint: Patient states: shortness of breath, headache, body aches since 0300 vg1 this morning. Vomited 3x today. Coronavirus screen: Vaccine status: Patient reports receiving the 2nd dose of the covid vaccine. Client denies travel out of the [place] in the last 14 days. Client presents with at least one sign or symptom that may indicate coronavirus-19. Standard/surgical mask placed on the client. Provider contacted for isolation considerations. Ebola Screen: Patient negative for fever greater than or equal to 101.5 degrees Fahrenheit, and additional compatible Ebola Virus Disease symptoms. Initial Sepsis Screen: Does the patient meet any 2 criteria? No. Patient's initial sepsis screen is negative. Does the patient have a suspected source of infection? No. Patient's initial sepsis screen is negative. Risk Assessment: Do you want to hurt yourself or someone else? Patient reports no desire to harm self or others. Onset of symptoms was August 16, 2021. 11:31 Method Of Arrival: Ambulatory vg1 11:31 Acuity: RENEE 4 vg1 Triage Assessment: 11:33 General: Appears in no apparent distress. uncomfortable, Behavior is calm, cooperative. vg1 Pain: Complains of pain in head and throat Pain currently is 9 out of 10 on a pain scale. Respiratory: Reports shortness of breath cough that is Onset: The symptoms/episode began/occurred today, the patient has mild shortness of breath. Historical: - Allergies: 11:33 No Known Allergies; vg1 - Home Meds: 11:33 None [Active]; vg1 - PMHx: 11:33 None; vg1 - PSHx: 11:33 None; vg1 - Immunization history:: Client reports receiving the 2nd dose of the Covid vaccine. - Social history:: Smoking status: Patient reports the use of cigarette tobacco products, smokes one pack cigarettes per day. Vital Signs: 11:31 BP 154 / 90; Pulse 79; Resp 18; Temp 98.1; Pulse Ox 100% ; Weight 77.11 kg; Height 5 vg1 ft. 9 in. (175.26 cm); Pain 9/10; 14:30 BP 141 / 80; Pulse 80; Resp 17; Temp 98.3; Pulse Ox 100% ; jl7 11:31 Body Mass Index 25.10 (77.11 kg, 175.26 cm) vg1 ED Course: 10:33 Patient arrived in ED. as 11:33 Triage completed. vg1 11:33 Arm band placed on. vg1 11:35 COVID swab sent to lab. Flu and/or RSV swab sent to lab. Strep swab sent to lab. 1 11:36 Strep Sent. 5 11:37 COVID-19/FLU A+B (Document "Date of Onset" if Symptomatic) Sent. [facility] 12:33 Adan Orellana MD is Attending Physician. kdr 12:43 Michelle Parker RN is Primary Nurse. 7 14:30 Patient did not have IV access during this emergency room visit. jl7 Administered Medications: 13:20 Drug: Tylenol 1000 mg Route: PO; jl7 13:30 Drug: Bicillin L-A (penicillin G Benzathine) 1.2 million units Route: IM; Site: right jl7 vastus lateralis; 13:42 Not Given (Patient Refused): Ibuprofen 800 mg PO once 7 Outcome: 13:36 Discharge ordered by . kdr 14:30 Discharged to home ambulatory. jl7 14:30 Condition: stable 14:30 Discharge instructions given to patient, Instructed on discharge instructions, follow up and referral plans. medication usage, Demonstrated understanding of instructions, follow-up care, medications, Prescriptions given X 1. 15:17 Patient left the ED. 7 Signatures: Adan Orellana MD MD kdr Kallie Mcgill Maria [facility] Michelle Parker, JOHN RN 7 Danni Goldstein RN RN 1
--- NOTE | 2021-08-16 13:37 | EDPHYS ---
Physician Documentation [facility] Name: Stacey Oliveros Age: 56 yrs Sex: Female : 1965 Arrival Date: 08/16/2021 Time: 10:33 Bed 12 Private MD: ED Physician Adan Orellana HPI: 08/16 15:36 This 56 yrs old Black Female presents to ER via Ambulatory with complaints of Shortness kdr Of Breath, r/o covid. 15:36 The patient has shortness of breath at rest, with light activity. Onset: The kdr symptoms/episode began/occurred this morning. Duration: The symptoms are intermittent, with no pattern. The patient's shortness of breath is aggravated by nothing, is alleviated by nothing. Severity of symptoms: At their worst the symptoms were mild moderate just prior to arrival. The patient has not experienced similar symptoms in the past. The patient has not recently seen a physician. Patient reports shortness of breath headache and body aches since 3:00 this morning. She is also vomited 3 times today. He is otherwise in her usual health prior to arrival and in the last few days. Historical: - Allergies: 11:33 No Known Allergies; vg1 - Home Meds: 11:33 None [Active]; vg1 - PMHx: 11:33 None; vg1 - PSHx: 11:33 None; vg1 - Immunization history:: Client reports receiving the 2nd dose of the Covid vaccine. - Social history:: Smoking status: Patient reports the use of cigarette tobacco products, smokes one pack cigarettes per day. ROS: 15:36 Constitutional: Negative for fever, chills, and weight loss, Eyes: Negative for injury, kdr pain, redness, and discharge, ENT: Negative for injury, pain, and discharge, Neck: Negative for injury, pain, and swelling, Cardiovascular: Negative for chest pain, palpitations, and edema, Abdomen/GI: Negative for abdominal pain, nausea, vomiting, diarrhea, and constipation, Back: Negative for injury and pain, : Negative for injury, bleeding, discharge, and swelling, MS/Extremity: Negative for injury and deformity, Skin: Negative for injury, rash, and discoloration, Neuro: Negative for headache, weakness, numbness, tingling, and seizure activity. Psych: Negative for depression, anxiety, suicide ideation, homicidal ideation, and hallucinations, Allergy/Immunology: Negative for hives, rash, and allergies, Endocrine: Negative for neck swelling, polydipsia, polyuria, polyphagia, and marked weight changes, Hematologic/Lymphatic: Negative for swollen nodes, abnormal bleeding, and unusual bruising. 15:36 Respiratory: Positive for cough, with no reported sputum, dyspnea on exertion, shortness of breath, Negative for dyspnea on exertion. Exam: 15:36 Constitutional: This is a well developed, well nourished patient who is awake, alert, kdr and in no acute distress. Head/Face: Normocephalic, atraumatic. Eyes: Pupils equal round and reactive to light, extra-ocular motions intact. Lids and lashes normal. Conjunctiva and sclera are non-icteric and not injected. Cornea within normal limits. Periorbital areas with no swelling, redness, or edema. Neck: Trachea midline, no thyromegaly or masses palpated, and no cervical lymphadenopathy. Supple, full range of motion without nuchal rigidity, or vertebral point tenderness. No Meningismus. Chest/axilla: Normal chest wall appearance and motion. Nontender with no deformity. No lesions are appreciated. Cardiovascular: Regular rate and rhythm with a normal S1 and S2. No gallops, murmurs, or rubs. Normal PMI, no JVD. No pulse deficits. Respiratory: Lungs have equal breath sounds bilaterally, clear to auscultation and percussion. No rales, rhonchi or wheezes noted. No increased work of breathing, no retractions or nasal flaring. Abdomen/GI: Soft, non-tender, with normal bowel sounds. No distension or tympany. No guarding or rebound. No evidence of tenderness throughout. Back: No spinal tenderness. No costovertebral tenderness. Full range of motion. Skin: Warm, dry with normal turgor. Normal color with no rashes, no lesions, and no evidence of cellulitis. MS/ Extremity: Pulses equal, no cyanosis. Neurovascular intact. Full, normal range of motion. Neuro: Awake and alert, GCS 15, oriented to person, place, time, and situation. Cranial nerves II-XII grossly intact. Motor strength 5/5 in all extremities. Sensory grossly intact. Cerebellar exam normal. Normal gait. Psych: Awake, alert, with orientation to person, place and time. Behavior, mood, and affect are within normal limits. Vital Signs: 11:31 BP 154 / 90; Pulse 79; Resp 18; Temp 98.1; Pulse Ox 100% ; Weight 77.11 kg; Height 5 vg1 ft. 9 in. (175.26 cm); Pain 9/10; 14:30 BP 141 / 80; Pulse 80; Resp 17; Temp 98.3; Pulse Ox 100% ; jl7 11:31 Body Mass Index 25.10 (77.11 kg, 175.26 cm) vg1 MDM: 13:36 Patient medically screened. kdr 15:36 Data reviewed: vital signs, nurses notes, lab test result(s), radiologic studies. kdr Counseling: I had a detailed discussion with the patient and/or guardian regarding: the historical points, exam findings, and any diagnostic results supporting the discharge/admit diagnosis, lab results, radiology results, the need for outpatient follow up. ED course: Patient was significantly improved with the interventions given. She was happy with the care provided and the plan for discharge with follow-up. 08/16 11:35 Order name: COVID-19/FLU A+B (Document "Date of Onset" if Symptomatic); Complete Time: vg1 13:22 08/16 11:35 Order name: Strep; Complete Time: 12:35 vg1 Administered Medications: 13:20 Drug: Tylenol 1000 mg Route: PO; jl7 13:30 Drug: Bicillin L-A (penicillin G Benzathine) 1.2 million units Route: IM; Site: right jl7 vastus lateralis; 13:42 Not Given (Patient Refused): Ibuprofen 800 mg PO once jl7 Disposition Summary: 08/16/21 13:36 Discharge Ordered Location: Home kdr Problem: new kdr Symptoms: have improved kdr Condition: Stable kdr Diagnosis - Streptococcal pharyngitis kdr - SARS-associated coronavirus as the cause of diseases classified elsewhere kdr Followup: kdr - With: Private Physician - When: 2 - 3 days - Reason: If symptoms return, Further diagnostic work-up, Recheck today's complaints, Continuance of care, Re-evaluation by your physician Discharge Instructions: - Discharge Summary Sheet kdr - Pharyngitis kdr - Sore Throat kdr - Strep Throat, Adult kdr - Upper Respiratory Infection, Adult, [id number] kdr - COVID-19 kdr - Things to Know about the COVID-19 Pandemic - [facility] kdr - 10 Things You Can Do to Manage Your COVID-19 Symptoms at Home - [facility] kdr - COVID-19: Quarantine vs. Isolation - [facility] kdr Forms: - Medication Reconciliation Form kdr - Thank You Letter kdr Prescriptions: - Tramadol 50 mg Oral Tablet - take 1 tablet by ORAL route every 8 hours as needed; 12 tablet; Refills: 0, kdr Product Selection Permitted Signatures: Dispatcher [employer] EDAdan Mae MD MD kdr Leal, Jahala, RN RN jl7 Danni Goldstein RN RN vg1
[2021-08-16 15:23] VITALS: O2SAT 100
[2021-08-16 15:24] VITALS: BP 141/80; TEMP 98.3
== END 2021-08-16 15:17 | disposition home or self-care (01) ==
LOC: ER 10:32
DX: U07.1 COVID-19 (principal); J02.0 Streptococcal pharyngitis
CPT/HCPCS: 0240U; 87081; 96372; 99283; J0561